=== PATIENT | male | born 1945 | race Caucasian/White ===

== ENCOUNTER 2017-02-25 12:43 | Inpatient (IN) | payer MEDICARE ==
[~2017-02-25] VITALS: Ht 182.9 cm; Wt 112.2 kg
[2017-02-25 12:46] VITALS: BP 114/78; PULSE 167; RESP 28; TEMP 98.7; O2SAT 91
--- NOTE | 2017-02-25 12:47 | PD ---
Physical Exam Date Seen by Provider: Feb 25, 2017 Time Seen by Provider: 12:45 Narrative 71 yo male here for evaluation of right sided pain. Going on for today. Pain to the right rib cage. Started on thursday. Not better. No falls or injuries. Pain is 8/10. No history of tachycardia. Takes no blood thinners. Vitals show elevated HR and low O2 in triage. Awaiting bed placement. [facility] Medical Record Reviewed: Yes Supervised Visit with TIFFANY: Demarcus Lee Feb 25, 2017 12:47
--- NOTE | 2017-02-25 12:57 | PD ---
HPI . Right sided chest pain and back pain Chief Complaint: Pain: Acute or Chronic Time Seen by Provider: 12:57 Travel History International Travel<30 days: No Contact w/Intl Traveler<30days: No Traveled to known affect area: No History of Present Illness HPI 71-year-old male with no known past medical history other than chronic back pain here with complaints of 5 days worth of right sided chest pain that is radiating to his back. He tells me that he is been coughing intermittently for the past several days and had a temperature of 101. He has history of chronic back pain and has been taking some type of [id number] muscle relaxer named Valerin, along with ibuprofen for the past several days. His pain was so significant that he tried using his TENS unit for relief yesterday. He denies any nausea, vomiting, or diaphoresis. PFSH Past Medical History Medical History: Denies Significant Hx Social History Alcohol Use: No Tobacco Use: No Substance Use: No Allergies-Medications (Allergen,Severity, Reaction): Coded Allergies: No Known Allergies (Unverified , 02/25/17) Reported Meds & Prescriptions Reported Meds & Active Scripts Active Reported [valerin] 1 Tab PO DAILY Ibuprofen 200 Mg Cap 200 Mg PO Q6H PRN Review of Systems General / Constitutional: No: Fever Eyes: No: Visual changes HENT: No: Headaches Cardiovascular: Positive: Chest Pain or Discomfort Respiratory: Positive: Cough, No: Shortness of Breath Gastrointestinal: No: Abdominal Pain Genitourinary: No: Dysuria Musculoskeletal: Positive: Pain (right side back pain ) Skin: No Rash Neurologic: No: Weakness Psychiatric: No: Depression Endocrine: No: Polydipsia Hematologic/Lymphatic: No: Easy Bruising Physical Exam Narrative GENERAL: AAO x 3, no acute distress, Well-nourished, well-developed patient. SKIN: Warm and dry. No visible rashes or bruising. HEAD: Normocephalic and atraumatic. EYES: No scleral icterus. No injection or drainage. EOM intact, PERRLA ENT: No nasal drainage noted. Mucous membranes pink. Airway patent. NECK: Supple, trachea midline. No JVD. CARDIOVASCULAR: tachycardic on examination, RESPIRATORY: Breath sounds diminished bilaterally R>L, ? consolidation; no rhonchi or wheezing appreciated GASTROINTESTINAL: Abdomen soft, non-tender, nondistended. no rebound or guarding EXTREMITIES: No cyanosis or edema. BACK: tenderness to the entire right side paraspinal musculature from mid t- spine down, + CVA Tenderness right side NEURO: CN II-12 intact, trades helper strength normal b/l, UE and LE 5/5, no focal deficits PSYCH: AAO x 3, normal affect. Data Data Last Documented VS Vital Signs Date Time Temp Pulse Resp B/P Pulse Ox O2 Delivery O2 Flow Rate FiO2 02/25/17 14:50 104 17 139/82 95 Room Air 02/25/17 13:00 2 02/25/17 12:46 98.7 Orders Electrocardiogram (02/25/17 12:57) B-Type Natriuretic Peptide (02/25/17 12:57) Ckmb (Isoenzyme) Profile (02/25/17 12:57) Complete Blood Count With Diff (02/25/17 12:57) Magnesium (Mg) (02/25/17 12:57) Prothrombin Time / Inr (Pt) (02/25/17 12:57) Act Partial Throm Time (Ptt) (02/25/17 12:57) Troponin I (02/25/17 12:57) Chest, Single Ap (02/25/17 12:57) Ecg Monitoring (02/25/17 12:57) Bilateral Bp Monitoring (02/25/17 12:57) Iv Access Insert/Monitor (02/25/17 12:57) Oximetry (02/25/17 12:57) Oxygen Administration (02/25/17 12:57) Ct Pulmonary Angiogram (02/25/17 12:57) Comprehensive Metabolic Panel (02/25/17 12:57) Lipase (02/25/17 12:57) Lactic Acid Sepsis Protocol (02/25/17 13:05) Urinalysis - C+S If Indicated (02/25/17 13:05) Blood Culture (02/25/17 13:05) CKMB (02/25/17 14:25) CKMB% (02/25/17 14:25) Iohexol 350 Inj (Omnipaque 350 Inj) (02/25/17 15:40) Physician Name Changes (02/25/17 16:51) Labs Laboratory Tests Test 02/25/17 02/25/17 02/25/17 13:15 14:25 14:35 Prothrombin Time 11.4 SEC Prothromb Time International 1.0 RATIO Ratio Activated Partial 31.5 SEC Thromboplast Time Lactic Acid Level 2.9 mmol/L B-Type Natriuretic Peptide 158 PG/ML White Blood Count 10.6 TH/MM3 Red Blood Count 4.29 MIL/MM3 Hemoglobin 14.4 GM/DL Hematocrit 41.6 % Mean Corpuscular Volume 97.0 FL Mean Corpuscular Hemoglobin 33.5 PG Mean Corpuscular Hemoglobin 34.6 % Concent Red Cell Distribution Width 13.2 % Platelet Count 142 TH/MM3 Mean Platelet Volume 8.1 FL Neutrophils (%) (Auto) 81.1 % Lymphocytes (%) (Auto) 7.0 % Monocytes (%) (Auto) 11.9 % Eosinophils (%) (Auto) 0.0 % Basophils (%) (Auto) 0.0 % Neutrophils # (Auto) 8.6 TH/MM3 Lymphocytes # (Auto) 0.7 TH/MM3 Monocytes # (Auto) 1.3 TH/MM3 Eosinophils # (Auto) 0.0 TH/MM3 Basophils # (Auto) 0.0 TH/MM3 CBC Comment DIFF FINAL Differential Comment Sodium Level 138 MEQ/L Potassium Level 3.7 MEQ/L Chloride Level 104 MEQ/L Carbon Dioxide Level 24.3 MEQ/L Anion Gap 10 MEQ/L Blood Urea Nitrogen 36 MG/DL Creatinine 1.12 MG/DL Estimat Glomerular Filtration 65 ML/MIN Rate Random Glucose 140 MG/DL Calcium Level 8.0 MG/DL Magnesium Level 2.9 MG/DL Total Bilirubin 1.3 MG/DL Aspartate Amino Transf 65 U/L (AST/SGOT) Alanine Aminotransferase 44 U/L (ALT/SGPT) Alkaline Phosphatase 54 U/L Total Creatine Kinase 434 U/L Creatine Kinase MB 2.3 NG/ML Creatine Kinase MB % 0.5 % Troponin I 0.06 NG/ML Total Protein 7.4 GM/DL Albumin 2.2 GM/DL Lipase 47 U/L Urine Color DARK-YELLOW Urine Turbidity CLEAR Urine pH 6.0 Urine Specific [place] 1.031 Urine Protein 100 mg/dL Urine Glucose (UA) NEG mg/dL Urine Ketones NEG mg/dL Urine Occult Blood SMALL Urine Nitrite NEG Urine Bilirubin NEG Urine Urobilinogen 2.0 MG/DL Urine Leukocyte Esterase NEG Urine RBC 4 /hpf Urine WBC 4 /hpf Urine Squamous Epithelial 1 /hpf Cells Urine Amorphous Sediment RARE Urine Mucus MOD /lpf Microscopic Urinalysis Comment CATH-CULT NOT IND MDM Medical Decision Making Medical Screen Exam Complete: Yes Emergency Medical Condition: Yes Medical Record Reviewed: Yes Differential Diagnosis angina, pneumonia, pulmonary emboli, cholelithiasis, nephrolithiasis Narrative Course 71-year-old male with right sided chest and back pain for the past 5 days. Patient does have some tenderness to most of the entire right side of his paraspinal musculature along with some CVA tenderness on the right. His breath sounds are diminished b/l, however, R>L. He is slightly tachycardic on examination. EKG has been reviewed by Dr. Scherer. IV access obtained and patient placed on continuous cardiac and pulse oximetry monitoring. Labs, imaging including chest x-ray and CT pulmonary angiogram ordered. Last Impressions Chest X-Ray 02/25/17 1257 Signed Impressions: Service Date/Time: Saturday, February 25, 2017 13:29 - CONCLUSION: Dense opacification the right lung base characteristic of a pleural effusion with underlying lung consolidation and/or mass. Followup to clearing recommended. Chano Lopez MD Laboratory Tests Test 02/25/17 02/25/17 13:15 14:25 Prothrombin Time 11.4 SEC Prothromb Time International 1.0 RATIO Ratio Activated Partial 31.5 SEC Thromboplast Time Lactic Acid Level 2.9 mmol/L B-Type Natriuretic Peptide 158 PG/ML White Blood Count 10.6 TH/MM3 Red Blood Count 4.29 MIL/MM3 Hemoglobin 14.4 GM/DL Hematocrit 41.6 % Mean Corpuscular Volume 97.0 FL Mean Corpuscular Hemoglobin 33.5 PG Mean Corpuscular Hemoglobin 34.6 % Concent Red Cell Distribution Width 13.2 % Platelet Count 142 TH/MM3 Mean Platelet Volume 8.1 FL Neutrophils (%) (Auto) 81.1 % Lymphocytes (%) (Auto) 7.0 % Monocytes (%) (Auto) 11.9 % Eosinophils (%) (Auto) 0.0 % Basophils (%) (Auto) 0.0 % Neutrophils # (Auto) 8.6 TH/MM3 Lymphocytes # (Auto) 0.7 TH/MM3 Monocytes # (Auto) 1.3 TH/MM3 Eosinophils # (Auto) 0.0 TH/MM3 Basophils # (Auto) 0.0 TH/MM3 CBC Comment DIFF FINAL Differential Comment Sodium Level 138 MEQ/L Potassium Level 3.7 MEQ/L Chloride Level 104 MEQ/L Carbon Dioxide Level 24.3 MEQ/L Anion Gap 10 MEQ/L Blood Urea Nitrogen 36 MG/DL Creatinine 1.12 MG/DL Estimat Glomerular Filtration 65 ML/MIN Rate Random Glucose 140 MG/DL Calcium Level 8.0 MG/DL Magnesium Level 2.9 MG/DL Total Bilirubin 1.3 MG/DL Aspartate Amino Transf 65 U/L (AST/SGOT) Alanine Aminotransferase 44 U/L (ALT/SGPT) Alkaline Phosphatase 54 U/L Total Creatine Kinase 434 U/L Troponin I 0.06 NG/ML Total Protein 7.4 GM/DL Albumin 2.2 GM/DL Lipase 47 U/L CXR shows large pleural effusion ? underlying mass. I have discussed the case with my attending Dr. Scherer, who recommends admission and tapping the pleural effusion. All of patients labs have been reviewed by my attending and they are all minimally elevated and nonspecific. At this time the pleural effusion is the issue at hand. We will hold off on antibiotics. Patient is afebrile. No WBC. Has not had tachycardia since coming into the room in the ED. 1711: case discussed with Dr. Rodriguez. Patient will be admitted and care will be resumed by [facility] Hospitalist. I have discussed all of the findings with the patient and his roommate at bedside. He has accepted the recommendations for admission. Diagnosis Primary Impression: Pleural effusion Additional Impression: Hypoxemia Admitting Information Admitting Physician Requests: Admit Condition: Stable Aimee Jeong Feb 25, 2017 12:57
[2017-02-25] MEDS ORDERED: IBUP200C PO (13:40)
[2017-02-25 14:03] LABS: APTT (PATIENT) 31.5 SEC (24.3-30.1); PROTHROMBIN TIME - PATIENT 11.4 SEC (9.8-11.6)
[2017-02-25] MEDS ORDERED: [UNRECOGNIZED DRUG - OTHER] PO (14:06)
--- NOTE | 2017-02-25 14:27 | RADRPT ---
EXAM DATE/TIME: 02/25/2017 13:29 [facility] COMPARISON: No previous studies available for comparison. INDICATIONS : Right side chest pain since last . MEDICAL HISTORY : None. SURGICAL HISTORY : None. ENCOUNTER: Initial ACUITY: 1 day PAIN SCORE: 7/10 LOCATION: Right chest FINDINGS: A single view of the chest demonstrates dense opacity across the right lung base. The right upper denisse g field and left lung are clear. Heart size appears to be within normal limits however right heart border is obscured. Osseous structures appear intact. CONCLUSION: Dense opacification the right lung base characteristic of a pleural effusion with underlying lung con solidation and/or mass. Followup to clearing recommended. Chano Lopez MD on February 25, 2017 at 14:23 Board Certified Radiologist. This report was verified electronically.
[2017-02-25 14:50] VITALS: BP 139/82; PULSE 104; RESP 17; O2SAT 95
[2017-02-25 14:55] LABS: AUTOMATED NEUTROPHIL # 8.6 TH/MM3 (1.8-7.7); HEMATOCRIT 41.6 % (39.0-51.0); HEMO FLAGS DIFF FINAL; LYMPHOCYTE # 0.7 TH/MM3 (1.0-4.8); MEAN CORPUSCULAR HEMOGLOBIN 33.5 PG (27.0-34.0); MEAN CORPUSCULAR HGB CONC 34.6 % (32.0-36.0); MONO % 11.9 % (0.0-8.0); NEUT % 81.1 % (16.0-70.0); PLATELET COUNT 142 TH/MM3 (150-450); RED BLOOD COUNT 4.29 MIL/MM3 (4.50-5.90); RED CELL DISTRIBUTION WIDTH 13.2 % (11.6-17.2); WHITE BLOOD COUNT 10.6 TH/MM3 (4.0-11.0)
[2017-02-25 15:08] LABS: ALT (GPT) 44 U/L (12-78); ANION GAP 10 MEQ/L (5-15); AST (GOT) 65 U/L (15-37); BICARBONATE 24.3 MEQ/L (21.0-32.0); BLOOD UREA NITROGEN 36 MG/DL (7-18); CHLORIDE 104 MEQ/L (98-107); GLOMERULAR FILTRATION RATE 65 ML/MIN (>89); MAGNESIUM 2.9 MG/DL (1.5-2.5); POTASSIUM 3.7 MEQ/L (3.5-5.1); SODIUM (NA) 138 MEQ/L (136-145)
[2017-02-25 15:12] LABS: ALKALINE PHOSPHATASE 54 U/L (45-117); CREATINE KINASE 434 U/L (39-308); TOTAL BILIRUBIN ADULT 1.3 MG/DL (0.2-1.0)
[2017-02-25 15:25] LABS: BLOOD, URINE SMALL (NEG); GLUCOSE,URINE NEG (NEG); KETONE, URINE NEG (NEG); MUCUS URINE MOD /lpf (OCC); NITRITE,URINE NEG (NEG); SQUAMOUS EPITHELIAL CELL URINE 1 /hpf (0-5); URINE COLOR DARK-YELLOW (YELLW/STRAW)
[2017-02-25 15:25] LABS: CKMB 2.3 NG/ML (0.5-3.6)
[2017-02-25 15:28] LABS: COMMENT (UR) CATH-CULT NOT IND; CULTURE IF INDICATED CATH CULTURE NOT IND
[2017-02-25] MEDS ORDERED: IOHEXOL 350 MG/ML 10 ML VIAL (for RAD DIAG) IV ONE (15:40)
[2017-02-25 15:43] LABS: LACTIC ACID GHOST NOT REPORTABLE
--- NOTE | 2017-02-25 15:53 | RADRPT ---
EXAM DATE/TIME: 02/25/2017 15:24 [facility] COMPARISON: No previous studies available for comparison. INDICATIONS : Short of breath for one week. IV CONTRAST: 75 cc Omnipaque 350 (iohexol) IV RADIATION DOSE: 22.8 CTDIvol (mGy) MEDICAL HISTORY : None SURGICAL HISTORY : None. ENCOUNTER: Initial ACUITY: 1 week PAIN SCALE: 8/10 LOCATION: Right lower chest. TECHNIQUE: Volumetric scanning of the chest was performed using a pulmonary embolism protocol MIP images were re constructed. Using automated exposure control and adjustment of the mA and/or kV according to patien t size, radiation dose was kept as low as reasonably achievable to obtain optimal diagnostic quality images. DICOM format image data is available electronically for review and comparison. Follow-up recommendations for incidentally detected pulmonary nodules are based at a minimum on nodul e size and patient risk factors according to Fleischner Society Guidelines. FINDINGS: PULMONARY ARTERIES: No filling defects are seen in the pulmonary arteries through the segmental level. LUNGS: Subtotal lobar consolidation is identified of the right middle and lower lobes. PLEURAE: Small to moderate right pleural effusion is noted adjacent to the consolidated lung within the right base. MEDIASTINUM: There is good visualization of the great vessels of the middle mediastinum. No evidence of mediastin al or hilar adenopathy/mass. MUSCULOSKELETAL: Within normal limits for patient age. MISCELLANEOUS: The visualized upper abdominal organs demonstrate no acute abnormality. CONCLUSION: 1. No evidence of PE. 2. Consolidated right middle and right lower lobes 3. Small to moderate right parapneumonic effusion Chano Lopez MD on February 25, 2017 at 15:46 Board Certified Radiologist. This report was verified electronically.
[2017-02-25 17:30] VITALS: BP 135/70; PULSE 89; RESP 17; O2SAT 94
[2017-02-25] MEDS ORDERED: ACETAMINOPHEN 325 MG TAB PO PRN (17:30)
[2017-02-25] MEDS ORDERED: ONDANSETRON HCL 4 MG/2 ML VIAL IVP PRN (17:30)
[2017-02-25] MEDS ORDERED: RESP: ALBUTEROL 2.5 MG/IPRATROPIUM 0.5 MG NEB (PRN) NEB (17:30)
[2017-02-25] MEDS ORDERED: MAGNESIUM HYDROXIDE SUSP 30 ML CUP PO PRN (17:30)
[2017-02-25] MEDS ORDERED: NALOXONE HCL 0.4 MG/ML AMP IV PRN (17:30)
[2017-02-25] MEDS ORDERED: SODIUM CHLORIDE 0.9% FLUSH 10 ML FLUSH IV FLUSH PRN (17:30)
--- NOTE | 2017-02-25 17:40 | HHI.HP ---
[facility] Service [facility] Primary Care Physician Katherine Celaya MD Admission Diagnosis pleural effusion/possible pneumonia Diagnoses: Chief Complaint: right post back pain Travel History International Travel<30 Days: No Contact w/Intl Traveler <30 Da: No Traveled to Known Affected Are: No History of Present Illness This is a pleasant 71-year-old white male with no significant medical history other than asthma as a child. Patient presented to the emergency room with right posterior back pain that has been worsening over the last 7 days. Indicates that the pain is located to the right posterior rib cage, there is no radiation, it is stabbing. It subsides on its own, he has been taking Valerium , which is a natural supplement that is like a muscle relaxant. His roommate has noted increased shortness of breath, he did have a fever a few days ago that was 101.2. There is no leg swelling, no actual chest discomfort. He has a dry cough, small amount of sputum, worst in the morning and after taking naps. He has also been applying Vicks vapor rub, without any relief. He denies any recent injury, no falls. Patient indicates he has not seen a primary care physician in more than 2 years. He had a slip and fall 7 years ago and has chronic left-sided back pain for which he takes natural supplements. Patient presented to the emergency room, vital signs were completed. Temperature was 98.7, pulse rate was 104, respiratory rate 28, blood pressure 114/78. Sats were 91% on room air. CBC was remarkable for thrombocytopenia, platelet 142. BMP remarkable for random glucose of 140, lactic acid 2.9. Total bilirubin 1.3. AST 65. Total creatinine kinase 434. The natruretic peptide 158. Troponin 0.06. Imaging studies were completed. CTA was negative for PE but it did show consolidated right middle and right lower lobes, small to moderate right parapneumonic effusion. Chest x-ray showed dense opacification of the right lung base characteristic of a pleural effusion with underlying lobe consolidation and or mass. Patient was put on oxygen. Cultures were obtained and empiric antibiotics were started. At this time, he's resting comfortably. Endorses prior history of smoking, quit in the 1980s, he did smoke 15 years half a pack a day. Patient is admitted for further evaluation and treatment. Review of Systems Constitutional: COMPLAINS OF: Fever, Chills, DENIES: Diaphoretic episodes, Fatigue, Weight gain, Weight loss, Dizziness, Change in appetite, Night Sweats Endocrine: DENIES: Heat/cold intolerance, Polydipsia, Polyuria, Polyphagia Eyes: DENIES: Blurred vision, Diplopia, Eye inflammation, Eye pain, Vision loss , Photosensitivity, Double Vision Ears, nose, mouth, throat: DENIES: Tinnitus, Hearing loss, Vertigo, Nasal discharge, Oral lesions, Throat pain, Hoarseness, Ear Pain, Running Nose, Epistaxis, Sinus Pain, Toothache, Odynophagia Respiratory: COMPLAINS OF: Cough, Sputum production, Shortness of breath, DENIES: Apneas, Snoring, Wheezing, Hemoptysis Cardiovascular: COMPLAINS OF: Chest pain (right posterior back pain), DENIES: Palpitations, Syncope, Dyspnea on Exertion, PND, Lower Extremity Edema, Orthopnea, Claudication Gastrointestinal: COMPLAINS OF: Constipation (did have constipation for 2-3 days, took Epsom salts and is now resolved.), DENIES: Abdominal pain, Black stools, Bloody stools, Diarrhea, Nausea, Vomiting, Difficulty Swallowing, Anorexia Genitourinary: DENIES: Sexual dysfunction, Urinary frequency, Urinary incontinence, Urgency, Hematuria, Dysuria, Nocturia, Penile Discharge, Testicular Pain, Testicular Swelling Musculoskeletal: DENIES: Joint pain, Muscle aches, Stiffness, Joint Swelling, Back pain, Neck pain Integumentary: DENIES: Abnormal pigmentation, Nail changes, Pruritus, Rash Hematologic/lymphatic: DENIES: Bruising, Lymphadenopathy Past Family Social History Past Medical History Asthma as a child Slip and fall 7 years ago, has chronic left-sided pain for which she takes natural supplement Past Surgical History Dental surgery Reported Medications Reported Meds & Active Scripts Active Reported [valerin] 1 Tab PO DAILY Ibuprofen 200 Mg Cap 200 Mg PO Q6H PRN Allergies: Coded Allergies: No Known Allergies (Unverified , 02/25/17) Active Ordered Medications Inpatient Medications Acetaminophen (Tylenol) 650 mg Q4H PRN PO TEMP > 100.4; Start 02/25/17 at 17:30 ; Status UNV Albuterol/ Ipratropium (Duoneb Neb) 1 ampule Q4HR NEB PRN NEB SOB/WHEEZING; Start 02/25/17 at 17:30; Status UNV Azithromycin/ Sodium Chloride (Zithromax Inj/ NS 250 ml Inj) 250 ml @ 250 mls/ hr Q24H IV ; Start 02/25/17 at 17:30; Status UNV Enoxaparin Sodium (Lovenox Inj) 40 mg Q24H SQ ; Start 02/25/17 at 17:30; Status UNV Magnesium Hydroxide 30 ml 30 ml Q12H PRN PO MILD - MODERATE CONSTIPATION; Start 02/25/17 at 17:30; Status UNV Naloxone HCl (Narcan Inj) 0.4 mg UNSCH PRN IV SEE LABEL COMMENTS; Start at 17:30; Status UNV Ondansetron HCl (Zofran Inj) 4 mg Q6H PRN IVP NAUSEA OR VOMITING; Start at 17:30; Status UNV Piperacillin Sod/ Tazobactam Sod 50 ml @ 100 mls/hr Q6H IV ; Start 02/25/17 at 17:30; Status UNV Senna/Docusate Sodium ([place]landa-Colace) 1 tab BID PO ; Start 02/25/17 at 21:00; Status UNV Sodium Chloride (NS 1000 ml Inj) 1,000 ml @ 100 mls/hr Q10H IV ; Start 02/25/17 at 17:18; Status UNV Sodium Chloride (NS Flush) 2 ml BID IV FLUSH ; Start 02/25/17 at 21:00; Status UNV Family History Reviewed, noncontributory Social History Patient is , lives with a roommate. Has grown children. Very rare alcohol, no substance abuse. Quit smoking in the 1980s, he smoked half a pack a day for 15 years. Did have asbestos exposure when he worked at the [employer] Physical Exam Vital Signs Vital Signs Date Time Temp Pulse Resp B/P Pulse Ox O2 Delivery O2 Flow Rate FiO2 02/25/17 14:50 104 17 139/82 95 Room Air 02/25/17 13:00 93 Nasal Cannula 2 02/25/17 12:59 18 02/25/17 12:46 98.7 167 28 114/78 91 Room Air Physical Exam GENERAL: This is a well-nourished, well-developed patient, in no apparent distress. SKIN: No rashes, ecchymoses or lesions. Cool and dry. HEAD: Atraumatic. Normocephalic. No temporal or scalp tenderness. EYES: Pupils equal round and reactive. Extraocular motions intact. No scleral icterus. No injection or drainage. ENT: Nose without bleeding, purulent drainage or septal hematoma. Throat without erythema, tonsillar hypertrophy or exudate. Uvula midline. Airway patent. NECK: Trachea midline. No JVD or lymphadenopathy. Supple, nontender, no meningeal signs. CARDIOVASCULAR: Regular rate and rhythm without murmurs, gallops, or rubs. RESPIRATORY: Breath sounds are diminished to the right lower base. Right CVA tenderness. GASTROINTESTINAL: Abdomen soft, non-tender, nondistended. No hepato-splenomegaly , or palpable masses. No guarding. MUSCULOSKELETAL: Extremities without clubbing, cyanosis, or edema. No joint tenderness, effusion, or edema noted. No calf tenderness. Negative Homans sign bilaterally. NEUROLOGICAL: Awake, alert oriented 3. No focal deficits Laboratory Laboratory Tests Test 02/25/17 02/25/17 02/25/17 13:15 14:25 14:35 Prothrombin Time 11.4 Prothromb Time International 1.0 Ratio Activated Partial 31.5 Thromboplast Time Lactic Acid Level 2.9 B-Type Natriuretic Peptide 158 White Blood Count 10.6 Red Blood Count 4.29 Hemoglobin 14.4 Hematocrit 41.6 Mean Corpuscular Volume 97.0 Mean Corpuscular Hemoglobin 33.5 Mean Corpuscular Hemoglobin 34.6 Concent Red Cell Distribution Width 13.2 Platelet Count 142 Mean Platelet Volume 8.1 Neutrophils (%) (Auto) 81.1 Lymphocytes (%) (Auto) 7.0 Monocytes (%) (Auto) 11.9 Eosinophils (%) (Auto) 0.0 Basophils (%) (Auto) 0.0 Neutrophils # (Auto) 8.6 Lymphocytes # (Auto) 0.7 Monocytes # (Auto) 1.3 Eosinophils # (Auto) 0.0 Basophils # (Auto) 0.0 CBC Comment DIFF FINAL Differential Comment Sodium Level 138 Potassium Level 3.7 Chloride Level 104 Carbon Dioxide Level 24.3 Anion Gap 10 Blood Urea Nitrogen 36 Creatinine 1.12 Estimat Glomerular Filtration 65 Rate Random Glucose 140 Calcium Level 8.0 Magnesium Level 2.9 Total Bilirubin 1.3 Aspartate Amino Transf 65 (AST/SGOT) Alanine Aminotransferase 44 (ALT/SGPT) Alkaline Phosphatase 54 Total Creatine Kinase 434 Creatine Kinase MB 2.3 Creatine Kinase MB % 0.5 Troponin I 0.06 Total Protein 7.4 Albumin 2.2 Lipase 47 Urine Color DARK-YELLOW Urine Turbidity CLEAR Urine pH 6.0 Urine Specific [place] 1.031 Urine Protein 100 Urine Glucose (UA) NEG Urine Ketones NEG Urine Occult Blood SMALL Urine Nitrite NEG Urine Bilirubin NEG Urine Urobilinogen 2.0 Urine Leukocyte Esterase NEG Urine RBC 4 Urine WBC 4 Urine Squamous Epithelial 1 Cells Urine Amorphous Sediment RARE Urine Mucus MOD Microscopic Urinalysis Comment CATH-CULT NOT IND Date/Time Procedure Status Source Growth 02/25/17 13:30 Aerobic Blood Culture Received Blood Peripheral Pending 02/25/17 13:30 Anaerobic Blood Culture Received Blood Peripheral Pending Result Diagram: 02/25/17 1425 02/25/17 1425 Imaging Last Impressions Chest X-Ray 02/25/17 1257 Signed Impressions: Service Date/Time: Saturday, February 25, 2017 13:29 - CONCLUSION: Dense opacification the right lung base characteristic of a pleural effusion with underlying lung consolidation and/or mass. Followup to clearing recommended. Chano Lopez MD CT Angiography 02/25/17 1257 Signed Impressions: Service Date/Time: Saturday, February 25, 2017 15:24 - CONCLUSION: 1. No evidence of PE. 2. Consolidated right middle and right lower lobes 3. Small to moderate right parapneumonic effusion Chano Lopez MD Assessment and Plan Problem List: (1) Hypoxemia (2) Pleural effusion (3) Pneumonia (4) Lactic acidosis (5) Blood glucose elevated (6) Elevated troponin Assessment and Plan Admit to Dr. Peña 71-year-old white male presented to the emergency room with complaint of right posterior back pain associated with shortness of breath, fever, cough. Consolidated right middle and right lower lobe, small to moderate right parapneumonic effusion -Continue with antibiotics, Zosyn and Zithromax Follow blood cultures Consult pulmonology -Continue with IV fluids Hypoxemia History of asthma as a child -DuoNeb's when necessary for wheezing -Continue with supplemental oxygen Elevated troponin -Continue with serial cardiac enzymes Elevated blood glucose Hemoglobin A1c in the morning Lovenox for DVT prophylaxis Repeat labs in the morning Plan of care has been discussed with the patient, attending and registered nurse. Further management of the patient will be dependent on the hospital course This patient was seen by myself and Dr. Peña, this H&P is written on his behalf Physician Certification 2 Midnight Certification Type: Admission for Inpatient Services Order for Inpatient Services The services are ordered in accordance with Medicare regulations or non- Medicare payer requirements, as applicable. In the case of services not specified as inpatient-only, they are appropriately provided as inpatient services in accordance with the 2-midnight benchmark. Estimated LOS (days): 2 2 days is the estimated time the patient will need to remain in the hospital, assuming treatment plan goals are met and no additional complications. Post-Hospital Plan: Not yet determined Problem Qualifiers (1) Pneumonia: Debby Wedlon [facility] Feb 25, 2017 17:40
[2017-02-25] MEDS ORDERED: SODIUM CHLOR 0.9% 1000 ML INJ 1,000 ML IV SCH (18:00)
[2017-02-25] MEDS ORDERED: DILTIAZEM HCL 25 MG/5 ML VIAL ONE (19:24)
--- NOTE | 2017-02-25 19:30 | MB ---
cc: GEORGE WATSON DATE OF CONSULTATION 02/25/[address] Rodriguez REASON FOR CONSULTATION Evaluate for pneumonia and shortness of breath. HISTORY OF THE PRESENT ILLNESS Mr. Pina is a pleasant 71-year-old male with history of arthritis pain, possible high blood pressure. He has not seen a physician for a long period of time. He virk not take any prescription medication at home. The patient came to the hospital with complaint of right-sided chest pain, fever up to 101.4 degrees, cough, small amount of sputum production, decreased appetite for the last 4 to 5 days. He denies any chills. He did not have any nausea or vomiting. At one-time he did feel a little sick and was not able to eat much. His chest pain is worse when he takes a deep breath. No headache or dizziness. No skin rash. With these symptoms he came to the hospital. He had a workup done. IMAGING He had a CTA of the chest done that does not show any pulmonary embolism. He has a consultation in the right middle lobe and right lower lobe with air bronchogram in it and he has a small to moderate right pleural effusion. LABORATORY DATA His WBC count is 10.6, hemoglobin 14.4, hematocrit 41.6, MCV 97, platelet count 142. Sodium 138, potassium 3.7, chloride 104, CO2 24, BUN 36, creatinine 1.12. INR is 1.0. His blood culture so far is negative. PAST MEDICAL HISTORY Significant for: 1. History of arthritis pain. 2. History of teeth removed. MEDICATIONS At home he was not taking any medication other than [id number] muscle relaxant. Currently he is takin. Zofran p.m. 2. Lovenox 40 mg a day. 3. Zithromax 500 mg a day. 4. Zosyn q.6 h. 5. Albuterol/Atrovent nebulizer treatment. ALLERGIES NO KNOWN DRUG ALLERGIES. SOCIAL HISTORY He has history of smoking for 10-15 years which he quit about 40 years ago. He drinks half a pint of liquor a day. No drug abuse. 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 He also installed the system at [facility]. FAMILY HISTORY He was twice but now he lives with a roommate. He has three grown children. REVIEW OF SYSTEMS Normally he is up, around and active. Weight is stable. No DVT or pulmonary embolism. No seizure, stroke or epilepsy. No bleeding from any site. PHYSICAL EXAMINATION GENERAL: Physical examination shows well built, well-nourished male not in acute distress. VITAL SIGNS: Blood pressure 135/70, heart rate 80, respirations 17, temperature 98.7. HEENT: Examination pupils are equal, round and reactive to light. Oral mucosa, nasal mucosa normal. NECK: Supple. JVD not raised. CHEST: Air entry equal bilaterally. He has rales on the right side and has bronchial breath sound on the right side. CARDIOVASCULAR: S1-S2 normal. ABDOMEN: Benign. EXTREMITIES: No edema. IMPRESSION 1. Right middle lobe, right lower lobe pneumonia likely community-acquired pneumonia. 2. Small pleural effusion likely parapneumonic. 3. Mild hypoxia. 4. Leukocytosis. PLAN I discussed with the patient we will check his sputum culture, urine legionella and pneumococcal antigen. Continue antibiotics Zosyn and Zithromax. Monitor his pleural effusion. If he does not respond to therapy or pleural effusion increases then he will need thoracentesis. Further treatment will depend on the course in the hospital. Thank you Dr. Rodriguez for this consultation. MD ZACKARY Dailey/MARIE /6:11 PM /7:10 PM
[2017-02-25 20:04] VITALS: BP 120/69
[2017-02-25 20:46] VITALS: O2SAT 92
[2017-02-25] MEDS: DOCUSATE SODIUM 50 MG/SENNA 8.6 MG TAB PO SCH (21:00)
[2017-02-25] MEDS: SODIUM CHLORIDE 0.9% FLUSH 10 ML FLUSH IV FLUSH SCH (21:00)
[2017-02-25 21:23] VITALS: BP 143/73; PULSE 56; RESP 20; TEMP 100.3; O2SAT 91
[2017-02-26] VITALS (7 sets, daily range): BP systolic 115–156; BP diastolic 60–81; PULSE 68–122; RESP 18–20; TEMP 98.5–100.2; O2SAT 91–100
[2017-02-26] MEDS: FUROSEMIDE 20 MG/2 ML VIAL IV PUSH SCH ×3 (01:01→17:08)
[2017-02-26] MEDS: AZITHROMYCIN INJ 500 MG in SODIUM CHLOR 0.9% 250 ML INJ 250 ML IV SCH ×2 (01:02→22:28)
[2017-02-26] MEDS: ENOXAPARIN SODIUM 40 MG/0.4 ML SYRINGE SQ SCH ×2 (01:02→22:29)
[2017-02-26] MEDS: PIPERACIL-TAZO 3.375 GM PREMIX 50 ML IV SCH ×5 (01:03→22:29)
[2017-02-26] MEDS: SODIUM CHLORIDE 0.9% FLUSH 10 ML FLUSH IV FLUSH SCH ×2 (08:47→21:00)
[2017-02-26] MEDS: DOCUSATE SODIUM 50 MG/SENNA 8.6 MG TAB PO SCH ×3 (08:47→22:29)
--- NOTE | 2017-02-26 08:56 | PD.PN.STU ---
Subjective Remarks Patient reports that he has feeling "pretty good" today. He has seen some symptom improvement since yesterday. He notes that the pain over the right side of his chest has subsided and his shortness of breath has improved. He says that he is still coughing up a yellow colored phlegm. He notes that he has felt "warm" since arrival and has experienced one episode of chills overnight. He denies pain with deep breathing, headache, and lightheadedness. Objective Vitals Vital Signs Date Time Temp Pulse Resp B/P Pulse Ox O2 Delivery O2 Flow Rate FiO2 02/26/17 08:00 80 02/26/17 04:00 100.2 81 20 131/72 91 02/26/17 00:00 99.8 68 20 139/64 94 02/25/17 21:23 100.3 56 20 143/73 91 02/25/17 20:46 92 Nasal Cannula 4.00 02/25/17 20:04 95 20 120/69 95 Nasal Cannula 3 02/25/17 17:30 89 17 135/70 94 Room Air 02/25/17 14:50 104 17 139/82 95 Room Air 02/25/17 13:00 93 Nasal Cannula 2 02/25/17 12:59 18 02/25/17 12:46 98.7 167 28 114/78 91 Room Air I/O 02/25/17 02/25/17 02/25/17 02/26/17 02/26/17 02/26/17 07:00 15:00 23:00 07:00 15:00 23:00 Output Total 475 ml Balance -475 ml Output Urine Total 475 ml Result Diagram: 02/25/17 1425 02/25/17 1425 Objective Remarks Cardiovascular: RRR. S1 S2 normal with no murmurs or rubs appreciated. Radial pulses 2+. Respiratory: No observed use of accessory respiratory muscles. Decreased breath sounds over right lung base. No crackles or wheezes appreciated. A/P Assessment and Plan 1. Pneumonia: continue to treat with antibiotics Zosyn and Zithromax. 2. Right sided back pain: treat with analgesia as necessary. 3. Shortness of breath/hypoxemia: utilize supplemental O2 as necessary. 4. Pleural effusion: observe and monitor for expansion. If increase in size consider thoracentesis . Addendum by Dr. Peña I personally seen and examined this patient Discussed with medical student Agree with above [place] is referred to my independent note for more details Trudy Caceres Feb 26, 2017 08:56 Ankur Peña MD Feb 26, 2017 16:03
[2017-02-26] MEDS: FUROSEMIDE 40 MG/4 ML VIAL IV PUSH SCH ×2 (09:00→18:00)
--- NOTE | 2017-02-26 10:59 | HHI.PR ---
Subjective Remarks Resting in bed Awake Mild exertional dyspnea with low volumes, weak light cough Low-grade fever 100.2 (Deysi Miranda) Objective Objective Results - Vital Signs Date Time Temp Pulse Resp B/P Pulse Ox O2 Delivery O2 Flow Rate FiO2 02/26/17 08:00 99.7 91 18 156/74 92 02/26/17 08:00 80 02/26/17 04:00 100.2 81 20 131/72 91 02/26/17 00:00 99.8 68 20 139/64 94 02/25/17 21:23 100.3 56 20 143/73 91 02/25/17 20:46 92 Nasal Cannula 4.00 02/25/17 20:04 95 20 120/69 95 Nasal Cannula 3 02/25/17 17:30 89 17 135/70 94 Room Air 02/25/17 14:50 104 17 139/82 95 Room Air 02/25/17 13:00 93 Nasal Cannula 2 02/25/17 12:59 18 02/25/17 12:46 98.7 167 28 114/78 91 Room Air I/O 02/25/17 02/25/17 02/25/17 02/26/17 02/26/17 02/26/17 06:59 14:59 22:59 06:59 14:59 22:59 Intake Total 1354 ml Output Total 475 ml Balance -475 ml 1354 ml Intake IV Total 1354 ml Output Urine Total 475 ml (Deysi Miranda) Result Diagram: 02/25/17 1425 02/25/17 1425 Other Results Last Impressions Chest X-Ray 02/25/17 1257 Signed Impressions: Service Date/Time: Saturday, February 25, 2017 13:29 - CONCLUSION: Dense opacification the right lung base characteristic of a pleural effusion with underlying lung consolidation and/or mass. Followup to clearing recommended. Chano Lopez MD CT Angiography 02/25/17 1257 Signed Impressions: Service Date/Time: Saturday, February 25, 2017 15:24 - CONCLUSION: 1. No evidence of PE. 2. Consolidated right middle and right lower lobes 3. Small to moderate right parapneumonic effusion Chano Lopez MD Medications and IVs Administered Medications Medications (Trade) Dose Ordered Sig/Roseann Route PRN Reason Start Time Stop Time Status Last Admin Dose Admin Enoxaparin Sodium 40 mg 40 mg Q24H SQ 02/25/17 20:00 02/26/17 01:02 Piperacillin Sod/ Tazobactam Sod 50 ml @ 100 mls/hr Q6H IV 02/25/17 20:00 02/26/17 08:47 Azithromycin/ Sodium Chloride (Zithromax Inj/ NS 250 ml Inj) 250 ml @ 250 mls/hr Q24H IV 02/25/17 20:00 02/26/17 01:02 Furosemide (Lasix Inj) 20 mg BID@09,18 IV PUSH 02/25/17 20:30 02/26/17 08:47 (Deysi Miranda) ROS General: Fatigue, Weakness, Other Pulmonary: Cough (10 point ROS done positives occasional cough, weak), SOB ( mild at rest) Skin: Other (obese) (Deysi Miranda) Physical Exam Physical Exam PHYSICAL EXAMINATION GENERAL: This is a obese male Resting in the bed mild tachypnea respirations noted He is awake, HEAD: Normocephalic OROPHARYNGEAL: Oropharynx dry NECK: Supple. Trachea midline without deviation. CARDIAC: Regular rhythm, regular rate, S1 and S2 are heard heart sounds distant LUNGS: Diminished to auscultation bilaterally. mild rhonchi ABDOMEN: Round, Soft, nontender, Bowel sounds are soft, active EXTREMITIES: Trace edema. Extremities warm NEUROLOGICAL: Patient mood and affect appropriate SKIN:Warm, dry (Deysi Miranda) A/P Assessment and Plan 1) Hypoxemia (2) Pleural effusion (3) Pneumonia (4) Lactic acidosis (5) Blood glucose elevated (6) Elevated troponin Vital signs reviewed, temp 100.2 Labs reviewed, acute kidney injury with dehydration, BUNs 36 encourage by mouth fluids Thrombocytopenia mild platelet count 142, monitor, mild positive troponin decreased 0.04 Lactic acid decreased after 24 hours to 1.7, no leukocytosis noted Recheck labs in the morning Consolidated right middle and right lower lobe, small to moderate right parapneumonic effusion Community-acquired, patient had been sick for approximately 5-6 days before coming to the hospital, after speaking with patient and family he seems to have fairly sedentary lifestyle due to chronic back pain and right hip pain from a old previous injury. Encourage patient to be out of bed up in chair, assisted to the bathroom this morning, will order physical therapy for evaluation and to evaluate strengthening and mobility continue duo nebs, oxygen, antibiotics, so far blood cultures are negative Consult pulmonary for expert opinion appreciate input, encourage by mouth fluids which include water and juice, hold off on Gatorade due to sodium content , IV hydration, Hypoxemia, resolved with oxygen, dual nebs, monitor O2 sat and any signs of acute shortness of breath Elevated troponin 2-D echo done, just completed report pending Cardiology consult appreciate input, currently receiving some IV diuresis Lovenox for DVT prophylaxis PPI for PUD prophylaxis Discharge planning, patient has sedentary lifestyle, encouraged to be up and mobile at home as much as possible for his quality of life. Physical therapy eval pending Discussed with nurse Discussed with patient Discussed with Dr. Peña, seen on his behalf (Deysi Miranda) Assessment and Plan seen, examined by myself, Dr Peña, today Discussed with patient, he is feeling better, breathing better, we will increase his Lasix dose Followed by pulmonary Hospital need for thoracentesis if no improvement Continue antibiotics No atrial fibrillation today Echocardiogram unremarkable, but of poor quality Discussed with mid level provider The exam, history, and the medical decision-making described in the above note were completed with the assistance of the mid-level provider. I reviewed the findings presented. I attest that I had a [id number] encounter with the patient on the same day, and personally performed and documented my assessment and findings in the medical record. (Ankur Peña MD) Deysi Miranda Feb 26, 2017 10:59 Ankur Peña MD Feb 26, 2017 19:58
[2017-02-26 11:56] LABS: AUTOMATED NEUTROPHIL # 5.8 TH/MM3 (1.8-7.7); BASOPHIL % 0.1 % (0.0-2.0); EOSINOPHIL % 0.3 % (0.0-4.0); HEMATOCRIT 41.7 % (39.0-51.0); HEMO FLAGS DIFF FINAL; LYMPH % 8.5 % (9.0-44.0); LYMPHOCYTE # 0.6 TH/MM3 (1.0-4.8); MEAN CELL VOLUME 97.2 FL (80.0-100.0); MEAN CORPUSCULAR HEMOGLOBIN 33.8 PG (27.0-34.0); MEAN CORPUSCULAR HGB CONC 34.7 % (32.0-36.0); MONO % 10.9 % (0.0-8.0); NEUT % 80.2 % (16.0-70.0); PLATELET COUNT 131 TH/MM3 (150-450); RED BLOOD COUNT 4.28 MIL/MM3 (4.50-5.90); RED CELL DISTRIBUTION WIDTH 13.4 % (11.6-17.2); WHITE BLOOD COUNT 7.2 TH/MM3 (4.0-11.0)
[2017-02-26 12:26] LABS: ALT (GPT) 46 U/L (12-78); ANION GAP 7 MEQ/L (5-15); AST (GOT) 64 U/L (15-37); CHLORIDE 104 MEQ/L (98-107); GLOMERULAR FILTRATION RATE 78 ML/MIN (>89); MAGNESIUM 2.6 MG/DL (1.5-2.5); POTASSIUM 3.2 MEQ/L (3.5-5.1); SODIUM (NA) 138 MEQ/L (136-145)
[2017-02-26 12:30] LABS: ALKALINE PHOSPHATASE 53 U/L (45-117); BLOOD UREA NITROGEN 28 MG/DL (7-18); CREATINE KINASE 385 U/L (39-308); TOTAL BILIRUBIN ADULT 1.1 MG/DL (0.2-1.0)
[2017-02-26 12:42] LABS: CKMB 3.3 NG/ML (0.5-3.6)
--- NOTE | 2017-02-26 14:35 | ECHRPT ---
Indication: Paroxysmal atrial fibrillation CONCLUSIONS Normal left ventricular size. Wall thickness is normal. The left ventricular systolic function is low normal with an estimated ejection fraction in the rang e of 50- 55%. There was limited left ventricular wall motion assessment due to poor endocardial visualization. No significant valvulopathies appreciated No pericardial effusion BP: / HR: Rhythm: Atrial fibrillation MEASUREMENTS (Male / Female) Normal Values Technical Quality:Technically difficult study 2D ECHO LV Diastolic Diameter PLAX 5.0 cm 4.2 - 5.9 / 3.9 - 5.3 cm LV Systolic Diameter PLAX 3.8 cm IVS Diastolic Thickness 1.3 cm 0.6 - 1.0 / 0.6 - 0.9 cm LVPW Diastolic Thickness 0.8 cm 0.6 - 1.0 / 0.6 - 0.9 cm LV Relative Wall Thickness 0.4 LA Systolic Diameter LX 4.2 cm 3.0 - 4.0 / 2.7 - 3.8 cm DOPPLER AV Peak Velocity 208.0 cm/s AV Peak Gradient 17.3 mmHg LVOT Peak Velocity 88.8 cm/s LVOT Peak Gradient 3.2 mmHg Mitral E Point Velocity 78.5 cm/s Mitral A Point Velocity 78.0 cm/s Mitral E to A Ratio 1.0 TR Peak Velocity 198.0 cm/s TR Peak Gradient 15.7 mmHg FINDINGS LEFT VENTRICLE Normal left ventricular size. Wall thickness is normal. The left ventricular systolic function is low normal with an estimated ejection fraction in the rang e of 50- 55%. There was limited left ventricular wall motion assessment due to poor endocardial visualization. RIGHT VENTRICLE Normal right ventricular size and systolic function. LEFT ATRIUM The left atrial size is normal. RIGHT ATRIUM The right atrial size is normal. ATRIAL SEPTUM Normal atrial septal thickness without atrial level shunting by limited color doppler interrogation. AORTA The aortic root and proximal ascending aorta are normal in size on limited imaging. MITRAL VALVE Structurally normal mitral valve. No mitral valve stenosis or regurgitation. AORTIC VALVE Trileaflet aortic valve. No aortic valve stenosis or regurgitation. TRICUSPID VALVE Structurally normal tricuspid valve. No tricuspid valve stenosis or regurgitation. PULMONARY VALVE The pulmonary valve is not well visualized. VESSELS The inferior vena cava is normal in size. PERICARDIUM No pericardial effusion. Delvin Tristan MD (Electronically Signed) Final Date:26 February 2017 14:34
--- NOTE | 2017-02-26 16:14 | EKG ---
Date Performed: 02/25/2017 Time Performed: 13:02:41 PTAGE: 71 years EKG: SINUS TACHYCARDIA WITH FREQUENT SUPRAVENTRICULAR PREMATURE COMPLEXES INCOMPLETE RIGHT BUNDL E BRANCH BLOCK POSSIBLE RIGHT VENTRICULAR HYPERTROPHY LEFT AXIS DEVIATION LEFT ANTERIOR FASCICULAR BL OCK NO PREVIOUS TRACING DOCTOR: Carl Bhat Interpretating Date/Time 02/26/2017 16:12:43
--- NOTE | 2017-02-26 16:15 | EKG ---
Date Performed: 02/25/2017 Time Performed: 19:42:38 PTAGE: 71 years EKG: Sinus rhythm WITH FREQUENT ATRIAL PREMATURE BEATS LEFT AXIS DEVIATION POSSIBLE LEFT ANTERIOR FASCICULAR BLOCK PAT IENT IS NO LONGER IN SVT COMPARED TO PRIOR TRACING PREVIOUS TRACING : 02/25/2017 19.21 DOCTOR: Carl Bhat Interpretating Date/Time 02/26/2017 16:14:06
--- NOTE | 2017-02-26 16:15 | EKG ---
Date Performed: 02/25/2017 Time Performed: 19:43:22 PTAGE: 71 years EKG: Sinus rhythm WITH PACS LEFT AXIS DEVIATION LEFT ANTERIOR FASCICULAR BLOCK NONSPECIFIC ST T WAVE CHANGES Compared to prior tracing no significant change PREVIOUS TRACING : 02/25/2017 19.21 DOCTOR: Carl Bhat Interpretating Date/Time 02/26/2017 16:14:44
--- NOTE | 2017-02-26 16:15 | EKG ---
Date Performed: 02/25/2017 Time Performed: 19:21:54 PTAGE: 71 years EKG: SUPRAVENTRICULAR TACHYCARDIA INCOMPLETE RIGHT BUNDLE BRANCH BLOCK Compared to the PREVIOUS TRACING SVT is new PREVIOUS TRACIN02/25/2017 13.02 DOCTOR: Carl Bhat Interpretating Date/Time 02/26/2017 16:13:15
[2017-02-26 16:56] LABS: HEMOGLOBIN A1b 0.8 %; HEMOGLOBIN Ao 85.7 %; HEMOGLOBIN LA1C 2.5 %; HEMOGLOBIN P3 3.6 %
--- NOTE | 2017-02-26 17:38 | HHI.PR ---
Subjective Remarks 71 YOWM with Pneumonia, Pl effusion, rt sided CP Breathing better Low grade fever Increased Troponin Legionella and Pneumococcal Ag negative Objective Vital Signs Vital Signs Date Time Temp Pulse Resp B/P Pulse Ox O2 Delivery O2 Flow Rate FiO2 02/26/17 16:00 99.2 83 18 115/60 92 02/26/17 13:04 96 Nasal Cannula 4.00 02/26/17 12:00 98.5 122 18 150/81 100 02/26/17 08:00 99.7 91 18 156/74 92 02/26/17 08:00 80 02/26/17 04:00 100.2 81 20 131/72 91 02/26/17 00:00 99.8 68 20 139/64 94 02/25/17 21:23 100.3 56 20 143/73 91 02/25/17 20:46 92 Nasal Cannula 4.00 02/25/17 20:04 95 20 120/69 95 Nasal Cannula 3 I/O 02/25/17 02/25/17 02/25/17 02/26/17 02/26/17 02/26/17 07:00 15:00 23:00 07:00 15:00 23:00 Intake Total 1834 ml Output Total 475 ml 200 ml Balance -475 ml 1634 ml Intake Oral 480 ml IV Total 1354 ml Output Urine Total 475 ml 200 ml # Voids 1 Result Diagram: 02/26/17 1109 02/26/17 1109 Objective Remarks GENERAL: WBWN Wm, NAD SKIN: Warm and dry. HEAD: Normocephalic. EYES: No scleral icterus. No injection or drainage. NECK: Supple, trachea midline. No JVD or lymphadenopathy. CARDIOVASCULAR: Regular rate and rhythm without murmurs, gallops, or rubs. RESPIRATORY: Breath sounds equal bilaterally. No accessory muscle use. Bronchial BS right lung base GASTROINTESTINAL: Abdomen soft, non-tender, nondistended. MUSCULOSKELETAL: No cyanosis, or edema. BACK: Nontender without obvious deformity. No CVA tenderness. A/P Assessment and Plan Pneumonia, Likly CAP Right Chest pain Pleural effusion, small Increased troponin PLAN: Cont Abx Zosyn and Zithro Check Cultures Rpt CXR If effusion increases, will need TC Avery Arauz MD Feb 26, 2017 17:38
--- NOTE | 2017-02-26 20:46 | MB ---
cc: AMRITA DUGAN MD DATE OF CONSULTATION 02/26/17 HISTORY OF PRESENT ILLNESS Mr. Pina is a 71 year old white male with history of asthma but no previous history of cardiac disease. He presented with right posterior back discomfort over the last week which is sharp, stabbing. He also has had increased shortness of breath. He was Diagnosed with right-sided pneumonia and started on antibiotics. He is currently feeling better. PAST MEDICAL HISTORY 1. Asthma 2. Fall seven years ago. 3. Chronic left-sided pain, 4. History of dental surgery. No history of hypertension, dyslipidemia, diabetes mellitus, coronary artery disease or CVA. MEDICATIONS Ibuprofen. ALLERGIES None. SOCIAL HISTORY The patient quit smoking in . He drinks alcohol rarely. He is . He has history of asbestos exposure. FAMILY HISTORY Negative for heart disease. REVIEW OF SYSTEMS Otherwise negative. PHYSICAL EXAMINATION VITAL SIGNS: Blood pressure 156/74, pulse 80 And irregular. HEENT: Negative. 2+ carotid upstrokes. No bruits. LUNGS: Decreased breath sounds at right base. HEART: Irregular with no murmur, gallop or rub. ABDOMEN: Soft. No bruits. EXTREMITIES: Without edema. 2+ distal pulses. NEUROLOGIC: Grossly nonfocal. CARDIOLOGY STUDIES EKG was reviewed and showed sinus tachycardia with frequent PVCs, left axis, left anterior fascicular block and incomplete right bundle branch block. LABORATORY DATA Hemoglobin 14.5, potassium 3.2, creatinine 1.0, AST 65, ALT 44, CK 434, CK-MB index 0.5, troponin 0.06, 0.04 and 0.04. BNP 158. Echocardiogram showed borderline left ventricular dysfunction with an ejection fraction 50-55% and no evidence of valvular heart disease or pericardial effusion. Follow up EKG showed narrow complex tachycardia suggestive of atrial flutter with 2:1 block. DIAGNOSES 1. Atypical chest pain. 2. Mildly abnormal troponin 3. Pneumonia. 4. Hypoxemia 5. Asthma 6. Narrow complex tachycardia, c/w paroxysmal atrial flutter. DISPOSITION Mr. Pina will be monitored on telemetry with serial enzymes and EKGs. We will continue therapy for pneumonia. His serial troponins have been unremarkable. His echocardiogram shows no significant left ventricular dysfunction. I will follow him for cardiology during his hospitalization. I will also see him back for followup in our office after discharge. MD BRITTANI Morales /7:34 PM /8:27 PM JULITO
[2017-02-27] VITALS (7 sets, daily range): BP systolic 110–137; BP diastolic 62–74; PULSE 58–87; RESP 17–20; TEMP 97.9–99.5; O2SAT 90–99
[2017-02-27] MEDS: PIPERACIL-TAZO 3.375 GM PREMIX 50 ML IV SCH ×3 (03:17→14:00)
[2017-02-27] MEDS: DOCUSATE SODIUM 50 MG/SENNA 8.6 MG TAB PO SCH ×2 (08:50→21:00)
[2017-02-27] MEDS: FUROSEMIDE 40 MG/4 ML VIAL IV PUSH SCH ×3 (09:00→17:32)
[2017-02-27] MEDS: SODIUM CHLORIDE 0.9% FLUSH 10 ML FLUSH IV FLUSH SCH (09:00)
--- NOTE | 2017-02-27 10:02 | PD.PN.STU ---
Subjective Remarks Patient reports that he is feeling "fair" today. He is no longer receiving supplemental O2 via nasal canula. He is still experiencing some right sided labored breathing and occasional right side sharp "jabbing" pain. He is still coughing occasionally but reports it is no longer productive. He has been up and walked. He denies sore throat but notes that his mouth and throat have been a little "dry"; he has not had any appetite changes. He reports rare sweats and chills. He denies lightheadedness, headaches, heart palpitations, nausea, and vomiting. Addendum by Dr. Peña I personally seen and examined this patient on 02/27/17 Discussed with medical student Agree with above [place] is referred to my independent note for more details Objective Vitals Vital Signs Date Time Temp Pulse Resp B/P Pulse Ox O2 Delivery O2 Flow Rate FiO2 02/27/17 08:00 97.9 58 20 137/72 99 02/27/17 04:30 98.4 61 17 117/67 94 02/27/17 00:30 98.5 86 18 127/62 96 02/26/17 21:36 98.6 76 20 135/77 92 02/26/17 16:00 99.2 83 18 115/60 92 02/26/17 13:04 96 Nasal Cannula 4.00 02/26/17 12:00 98.5 122 18 150/81 100 I/O 02/26/17 02/26/17 02/26/17 02/27/17 02/27/17 02/27/17 07:00 15:00 23:00 07:00 15:00 23:00 Intake Total 1834 ml Output Total 475 ml 200 ml 200 ml Balance -475 ml 1634 ml -200 ml Intake Oral 480 ml IV Total 1354 ml Output Urine Total 475 ml 200 ml 200 ml # Voids 1 # Bowel Movements 1 Result Diagram: 02/26/17 1109 02/26/17 1109 Objective Remarks General: Alert and cooperative. Oriented to person, place, and time. Does not appear to be in acute distress. HEENT: Normocephalic. No pharyngeal erythema Cardiovascular: Irregular rhythm. No murmurs or rubs appreciated. Pulmonary: No noted use of accessory muscles. Decreased lung sounds over right lung base. A/P Assessment and Plan 1. Pneumonia: Culture still inconclusive. Continue to treat with antibiotics Zosyn and Zithromax. 2. Right sided back pain: treat with analgesia as necessary. 3. Shortness of breath/hypoxemia: utilize supplemental O2 as necessary. 4. Pleural effusion: observe and monitor for expansion. If increase in size consider thoracentesis . 5. Afib: continue to monitor for irregular rhythm. 6. Hyperglycemia: continue to monitor and address with oral glycemic agents as necessary 7. Elevated Troponin: continue to monitor 8. Continue to monitor electrolytes and replace as necessary 9. Continue DVT prophylaxis with Lovenox Trudy Caceres M3 Feb 27, 2017 10:02 Ankur Peña MD Mar 01, 2017 18:55
[2017-02-27 10:59] LABS: BICARBONATE 26.3 MEQ/L (21.0-32.0); POTASSIUM 3.2 MEQ/L (3.5-5.1)
[2017-02-27] MEDS ORDERED: POTASSIUM CHLORIDE 10 MEQ CONTROLLED RELEASE TAB PO ONE (12:15)
[2017-02-27] MEDS: POTASSIUM CHLORIDE 20 MEQ CONTROLLED RELEASE TAB PO SCH ×3 (12:48→17:33)
--- NOTE | 2017-02-27 13:50 | HHI.PR ---
Subjective Remarks Awake alert sitting up in bed Facial color pink States less shortness of breath and feeling better Still has some right-sided flank pain (Deysi Miranda) Objective Objective Results - Vital Signs Date Time Temp Pulse Resp B/P Pulse Ox O2 Delivery O2 Flow Rate FiO2 02/27/17 12:00 99.0 80 18 110/73 92 02/27/17 10:26 94 21 02/27/17 08:00 97.9 58 20 137/72 99 02/27/17 04:30 98.4 61 17 117/67 94 02/27/17 00:30 98.5 86 18 127/62 96 02/26/17 21:36 98.6 76 20 135/77 92 02/26/17 16:00 99.2 83 18 115/60 92 I/O 02/26/17 02/26/17 02/26/17 02/27/17 02/27/17 02/27/17 07:00 15:00 23:00 07:00 15:00 23:00 Intake Total 1834 ml Output Total 475 ml 200 ml 200 ml Balance -475 ml 1634 ml -200 ml Intake Oral 480 ml IV Total 1354 ml Output Urine Total 475 ml 200 ml 200 ml # Voids 1 # Bowel Movements 1 (Deysi Miranda) Result Diagram: 02/26/17 1109 02/27/17 0859 ROS General: Fatigue, Weakness, Other (10 point ROS done positives noted) Pulmonary: Cough, SOB (Deysi Miranda) Physical Exam Physical Exam PHYSICAL EXAMINATION GENERAL: This is a obese male resting in the bed no acute shortness of breath noted. He is alert and awake,. HEAD: Normocephalic without any lesion or mass noted. Facial features appear symmetric. OROPHARYNGEAL: Oropharynx without erythema or edema. NECK: Supple. No nuchal rigidity or lymphadenopathy. Trachea midline without deviation. CARDIAC: Regular rhythm, regular rate, S1 and S2 are heard. Soft systolic murmur left sternal border LUNGS: Diminished to auscultation bilaterally. no wheeze, no rhonchi , probable mild rale. No use of accessory muscles on inspiration or expiration. ABDOMEN: Soft, obese Bowel sounds are heard in all four quadrants. EXTREMITIES: no edema. NEUROLOGICAL: Patient mood and affect appropriate. SKIN:Warm and moist (Deysi Miranda) A/P Assessment and Plan 1) Hypoxemia (2) Pleural effusion (3) Pneumonia (4) Lactic acidosis (5) Blood glucose elevated (6) Elevated troponin Vital signs reviewed, normal trends today Labs reviewed, hypokalemia, treated with oral potassium 20 mEq 1, recheck BMP in the morning O2 saturation 94, currently on room air for trial. Recheck labs in the morning Bowel regimen BM 1 today, Consolidated right middle and right lower lobe, small to moderate right parapneumonic effusion Community-acquired, 24-hour improvement noted with current treatment regimen, currently patient on room air shortness of breath controlled at rest Encourage patient to be out of bed up in chair, assisted to the bathroom this morning, will order physical therapy for evaluation and to evaluate strengthening and mobility. Was able to transfer and walk up the hallway with PT. Minimal shortness of breath continue duo nebs, oxygen, antibiotics, so far blood cultures are negative Consult pulmonary for expert opinion appreciate input, Hypoxemia, resolved with oxygen, dual nebs, monitor O2 sat and any signs of acute shortness of breath Elevated troponin 2-D echo done, no significant LVH Cardiology consult appreciate input, continue to monitor I&O, , will see him back in the office after discharge Lovenox for DVT prophylaxis PPI for PUD prophylaxis Discharge planning, review home with home health and rehabilitation versus continued rehabilitation for some deconditioning Discussed with nurse Discussed with patient Discussed with Dr. Peña, seen on his behalf (Deysi Miranda) Assessment and Plan seen, examined by myself, Dr Peña, today Discussed with patient, dyspnea much improved, however he still feels generally weak Physical therapy ordered Discussed with mid level provider The exam, history, and the medical decision-making described in the above note were completed with the assistance of the mid-level provider. I reviewed the findings presented. I attest that I had a [id number] encounter with the patient on the same day, and personally performed and documented my assessment and findings in the medical record. (Ankur Peña MD) Deysi Miranda Feb 27, 2017 13:50 Ankur Peña MD Feb 27, 2017 20:15
--- NOTE | 2017-02-27 17:19 | RADRPT ---
EXAM DATE/TIME: 02/27/2017 12:36 [facility] COMPARISON: CHEST SINGLE AP, February 25, 2017, 13:29. INDICATIONS : Pneumonia, short of breath, chest pain. MEDICAL HISTORY : asthma as a child SURGICAL HISTORY : None. ENCOUNTER: Initial ACUITY: 1 week PAIN SCORE: 4/10 LOCATION: Right chest FINDINGS: A single view of the chest continues to demonstrate dense consolidation right lung base with associat ed effusion. The effusion appears slightly smaller. Heart and mediastinal structures are stable. Left lung remains clear. CONCLUSION: Persistent consolidating airspace disease with pleural effusion in the right lung base. Slight decrease in pleural effusion is noted. Chano Lopez MD on February 27, 2017 at 17:17 Board Certified Radiologist. This report was verified electronically.
--- NOTE | 2017-02-27 17:40 | PD.CARD.PN ---
Subjective Subjective Remarks No angina, less SOB Objective Medications Current Medications Medications (Trade) Dose Ordered Sig/Roseann Route Start Time Stop Time Status Last Admin (NS Flush) 2 ml UNSCH PRN IV FLUSH 02/25/17 17:30 (NS Flush) 2 ml BID IV FLUSH 02/25/17 21:00 (Tylenol) 650 mg Q4H PRN PO 02/25/17 17:30 (Zofran Inj) 4 mg Q6H PRN IVP 02/25/17 17:30 (Lovenox Inj) 40 mg Q24H SQ 02/25/17 20:00 02/26/17 22:29 (Narcan Inj) 0.4 mg UNSCH PRN IV 02/25/17 17:30 (Irlanda-Colace) 1 tab BID PO 02/25/17 21:00 02/27/17 08:50 Magnesium Hydroxide 30 ml 30 ml Q12H PRN PO 02/25/17 17:30 Piperacillin Sod/ Tazobactam Sod 50 ml @ 100 mls/hr Q6H IV 02/25/17 20:00 02/27/17 14:00 (Zithromax Inj/ NS 250 ml Inj) 250 ml @ 250 mls/hr Q24H IV 02/25/17 20:00 02/26/17 22:28 (Lasix Inj) 40 mg BID@09,18 IV PUSH 02/26/17 09:00 02/27/17 17:32 (KCl) 20 meq QID PO 02/27/17 11:30 02/27/17 17:33 Vital Signs / I&O Vital Signs Date Time Temp Pulse Resp B/P Pulse Ox O2 Delivery O2 Flow Rate FiO2 02/27/17 16:00 99.5 83 18 129/74 90 02/27/17 12:00 99.0 80 18 110/73 92 02/27/17 10:26 94 21 02/27/17 08:00 97.9 58 20 137/72 99 02/27/17 04:30 98.4 61 17 117/67 94 02/27/17 00:30 98.5 86 18 127/62 96 02/26/17 21:36 98.6 76 20 135/77 92 I/O 02/26/17 02/26/17 02/26/17 02/27/17 02/27/1717 06:59 14:59 22:59 06:59 14:59 22:59 Intake Total 1834 ml Output Total 475 ml 200 ml 200 ml Balance -475 ml 1634 ml -200 ml Intake Oral 480 ml IV Total 1354 ml Output Urine Total 475 ml 200 ml 200 ml # Voids 1 4 # Bowel Movements 2 Physical Exam GENERAL: In NAD SKIN: Warm and dry. HEAD: Normocephalic. EYES: No scleral icterus. No injection or drainage. NECK: Supple, trachea midline. No JVD or lymphadenopathy. CARDIOVASCULAR: Irregular, without murmurs, gallops, or rubs. RESPIRATORY: Breath sounds equal bilaterally. No accessory muscle use. GASTROINTESTINAL: Abdomen soft, non-tender, nondistended. MUSCULOSKELETAL: No cyanosis, or edema. Laboratory Laboratory Tests Test 02/27/17 08:59 Sodium Level 138 MEQ/L Potassium Level 3.2 MEQ/L Chloride Level 103 MEQ/L Carbon Dioxide Level 26.3 MEQ/L Anion Gap 9 MEQ/L Blood Urea Nitrogen 25 MG/DL Creatinine 0.86 MG/DL Estimat Glomerular Filtration 88 ML/MIN Rate Random Glucose 190 MG/DL Calcium Level 7.9 MG/DL Imaging Last Impressions Chest X-Ray 02/27/17 0000 Signed Impressions: Service Date/Time: Monday, February 27, 2017 12:36 - CONCLUSION: Persistent consolidating airspace disease with pleural effusion in the right lung base. Slight decrease in pleural effusion is noted. Chano Lopez MD CT Angiography 02/25/17 1257 Signed Impressions: Service Date/Time: Saturday, February 25, 2017 15:24 - CONCLUSION: 1. No evidence of PE. 2. Consolidated right middle and right lower lobes 3. Small to moderate right parapneumonic effusion Chano Lopez MD Assessment and Plan Problem List: (1) Atrial fibrillation and flutter (2) Elevated troponin (3) Pneumonia (4) Hypoxemia Assessment and Plan In atrial fibrillation with increased VR this PM. Recommend to start and titrate short acting diltiazem for rate control, switch to long-acting diltiazem later. Also recommend full anticoagulation. I will schedule him to see me in the office for cardiology followup after discharge. Problem Qualifiers (1) Pneumonia: Cornelius Haynes MD Feb 27, 2017 17:40
--- NOTE | 2017-02-27 17:43 | HHI.PR ---
Subjective Remarks 71 YOWM with Pneumonia, Pl effusion, rt sided CP Breathing better Increased Troponin Legionella and Pneumococcal Ag negative no fever Objective Vital Signs Vital Signs Date Time Temp Pulse Resp B/P Pulse Ox O2 Delivery O2 Flow Rate FiO2 02/27/17 16:00 99.5 83 18 129/74 90 02/27/17 12:00 99.0 80 18 110/73 92 02/27/17 10:26 94 21 02/27/17 08:00 97.9 58 20 137/72 99 02/27/17 04:30 98.4 61 17 117/67 94 02/27/17 00:30 98.5 86 18 127/62 96 02/26/17 21:36 98.6 76 20 135/77 92 I/O 02/26/17 02/26/17 02/26/17 02/27/17 02/27/17 02/27/17 07:00 15:00 23:00 07:00 15:00 23:00 Intake Total 1834 ml Output Total 475 ml 200 ml 200 ml Balance -475 ml 1634 ml -200 ml Intake Oral 480 ml IV Total 1354 ml Output Urine Total 475 ml 200 ml 200 ml # Voids 1 4 # Bowel Movements 2 Result Diagram: 02/26/17 1109 02/27/17 0859 Objective Remarks GENERAL: WBWN Wm, NAD SKIN: Warm and dry. HEAD: Normocephalic. EYES: No scleral icterus. No injection or drainage. NECK: Supple, trachea midline. No JVD or lymphadenopathy. CARDIOVASCULAR: Regular rate and rhythm without murmurs, gallops, or rubs. RESPIRATORY: Breath sounds equal bilaterally. No accessory muscle use. Bronchial BS right lung base GASTROINTESTINAL: Abdomen soft, non-tender, nondistended. MUSCULOSKELETAL: No cyanosis, or edema. BACK: Nontender without obvious deformity. No CVA tenderness. A/P Assessment and Plan Pneumonia, Likly CAP Right Chest pain Pleural effusion, small Increased troponin PLAN: Cont Abx Zosyn and Zithro check CXR If effusion increases, will need TC Avery Arauz MD Feb 27, 2017 17:43
[2017-02-27] MEDS: DILTIAZEM HCL 30 MG TAB PO SCH (18:57)
[2017-02-28] VITALS (7 sets, daily range): BP systolic 112–129; BP diastolic 54–73; PULSE 57–82; RESP 16–20; TEMP 98.4–98.7; O2SAT 91–96
[2017-02-28] MEDS: PIPERACIL-TAZO 3.375 GM PREMIX 50 ML IV SCH ×5 (00:15→20:52)
[2017-02-28] MEDS: AZITHROMYCIN INJ 500 MG in SODIUM CHLOR 0.9% 250 ML INJ 250 ML IV SCH ×2 (00:15→20:52)
[2017-02-28] MEDS: ENOXAPARIN SODIUM 40 MG/0.4 ML SYRINGE SQ SCH ×2 (00:16→20:53)
[2017-02-28] MEDS: SODIUM CHLORIDE 0.9% FLUSH 10 ML FLUSH IV FLUSH SCH ×3 (00:16→20:53)
[2017-02-28] MEDS: DILTIAZEM HCL 30 MG TAB PO SCH ×4 (00:16→17:02)
[2017-02-28] MEDS: POTASSIUM CHLORIDE 20 MEQ CONTROLLED RELEASE TAB PO SCH ×6 (00:16→20:54)
[2017-02-28 08:13] LABS: AUTOMATED NEUTROPHIL # 6.9 TH/MM3 (1.8-7.7); BASOPHIL % 0.3 % (0.0-2.0); EOSINOPHIL # 0.2 TH/MM3 (0-0.4); EOSINOPHIL % 1.8 % (0.0-4.0); HEMATOCRIT 43.7 % (39.0-51.0); HEMO FLAGS DIFF FINAL; LYMPH % 23.2 % (9.0-44.0); LYMPHOCYTE # 2.4 TH/MM3 (1.0-4.8); MEAN CELL VOLUME 96.8 FL (80.0-100.0); MEAN CORPUSCULAR HEMOGLOBIN 34.2 PG (27.0-34.0); MEAN CORPUSCULAR HGB CONC 35.3 % (32.0-36.0); MONO % 8.2 % (0.0-8.0); NEUT % 66.5 % (16.0-70.0); PLATELET COUNT 209 TH/MM3 (150-450); RED BLOOD COUNT 4.51 MIL/MM3 (4.50-5.90); RED CELL DISTRIBUTION WIDTH 13.5 % (11.6-17.2); WHITE BLOOD COUNT 10.4 TH/MM3 (4.0-11.0)
[2017-02-28 08:36] LABS: BICARBONATE 27.7 MEQ/L (21.0-32.0); POTASSIUM 3.3 MEQ/L (3.5-5.1)
[2017-02-28] MEDS: DOCUSATE SODIUM 50 MG/SENNA 8.6 MG TAB PO SCH (09:15)
[2017-02-28] MEDS: FUROSEMIDE 40 MG/4 ML VIAL IV PUSH SCH ×2 (09:15→17:03)
--- NOTE | 2017-02-28 13:41 | HHI.PR ---
Subjective Remarks Resting in the bed, dozing lightly but responds readily to verbal stimuli Has oxygen back on Ambulated with physical therapy Encourage patient to be up in chair and up in room call for assistance if needed (Deysi Miranda) Objective Objective Results - Vital Signs Date Time Temp Pulse Resp B/P Pulse Ox O2 Delivery O2 Flow Rate FiO2 02/28/17 12:00 98.7 57 18 117/68 93 02/28/17 08:00 98.4 64 20 122/71 91 02/28/17 04:00 98.7 72 20 126/73 91 02/28/17 00:00 98.4 75 20 121/59 92 02/27/17 20:00 98.9 87 20 121/71 93 02/27/17 16:00 99.5 83 18 129/74 90 I/O 02/27/17 02/27/17 02/27/17 02/28/17 02/28/17 02/28/17 07:00 15:00 23:00 07:00 15:00 23:00 Output Total 800 ml 600 ml Balance -800 ml -600 ml Output Urine Total 800 ml 600 ml # Voids 4 # Bowel Movements 2 (Deysi Miranda) Result Diagram: 02/28/1725 02/28/17 0725 ROS General: Fatigue, Weakness (improving), Other (10 point ROS done positives noted) Pulmonary: Cough (occasional), SOB (exertional), Other (right sided flank pain mild, improved from admission but still persist) GI: Diarrhea (stools are loose patient's currently on stool softeners) (Deysi Miranda) Physical Exam Physical Exam PHYSICAL EXAMINATION GENERAL: This is a obese male who appears to be in no acute distress. He is awake HEAD: Normocephalic Facial features appear symmetric. OROPHARYNGEAL: Oropharynx without erythema or edema. NECK: Supple. No nuchal rigidity or lymphadenopathy. Trachea midline without deviation. CARDIAC: Regular rhythm, regular rate, S1 and S2 are heard. LUNGS: Decreased and diminished to auscultation especially on right side No use of accessory muscles on inspiration or expiration, but does note shortness of breath with activity ABDOMEN: Round, Soft, nontender Bowel sounds are heard in all four quadrants., Stools are loose 2 today, patient's currently on stool softeners EXTREMITIES: Trace lower extremity edema. Pulses equal bilateral. NEUROLOGICAL: Patient mood and affect appropriate. SKIN:Warm and moist (Deysi Miranda) A/P Assessment and Plan 1) Hypoxemia (2) Pleural effusion (3) Pneumonia (4) Lactic acidosis (5) Blood glucose elevated (6) Elevated troponin Vital signs reviewed, normal trends today Labs reviewed, hypokalemia, treated with oral potassium 40 mEq divided into 2 doses, recheck BMP in the morning O2 saturation 91, using O2 at rest in the bed, will order walk test for tomorrow a.m. to see what patient's O2 sat is with exertion and whether he will need possible home O2. Bowel regimen BM 2 today, patient states bowels are loose, will DC stool softeners instructed patient to ask for laxative if no BM on third day Consolidated right middle and right lower lobe, small to moderate right parapneumonic effusion Community-acquired, improvement noted with current treatment regimen, patient still has some exertional dyspnea noted , O2 sat 91 , patient is now wearing his oxygen again. Working with physical therapy who states patient should be safe at home, with some possible dependent home needs. continue duo nebs, oxygen, antibiotics, so far blood cultures are negative Consult pulmonary for expert opinion appreciate input, Hypoxemia, resolved from admission, O2 sat 91, walk test to be done in the morning Patient still complains of some mild to moderate right sided flank pain. Pain management, repeat chest x-ray still shows pleural effusion, mildly decreased on the right side. Possible thoracentesis? Continue physical therapy and encourage patient to be active with safety. Nutrition discussed as well as daily activity Elevated troponin 2-D echo done, no significant LVH Cardiology consult appreciate input, continue to monitor I&O, , will see him back in the office after discharge Lovenox for DVT prophylaxis PPI for PUD prophylaxis Discharge planning, probable home when patient stable Discussed with nurse Discussed with patient Discussed with Dr. Peña, seen on his behalf (Deysi Miranda) Assessment and Plan seen, examined by myself, Dr Peña, today Discussed with patient Physical community-acquired pneumonia Some pleuritic pain Pleural effusion [employer] following If significant amount of fluid, then possible thoracentesis Discussed with mid level provider The exam, history, and the medical decision-making described in the above note were completed with the assistance of the mid-level provider. I reviewed the findings presented. I attest that I had a [id number] encounter with the patient on the same day, and personally performed and documented my assessment and findings in the medical record. (nAkur Peña MD) Deysi Miranda Feb 28, 2017 13:41 Ankur Peña MD Feb 28, 2017 18:53
--- NOTE | 2017-02-28 14:05 | PD.CARD.PN ---
Objective Vital Signs / I&O Vital Signs Date Time Temp Pulse Resp B/P Pulse Ox O2 Delivery O2 Flow Rate FiO2 02/28/17 12:00 98.7 57 18 117/68 93 02/28/17 08:00 98.4 64 20 122/71 91 02/28/17 07:00 81 02/28/17 04:00 98.7 72 20 126/73 91 02/28/17 00:00 98.4 75 20 121/59 92 02/27/17 20:00 98.9 87 20 121/71 93 02/27/17 16:00 99.5 83 18 129/74 90 I/O 02/27/17 02/27/17 02/27/17 02/28/17 02/28/17 02/28/17 07:00 15:00 23:00 07:00 15:00 23:00 Output Total 800 ml 600 ml Balance -800 ml -600 ml Output Urine Total 800 ml 600 ml # Voids 4 # Bowel Movements 2 Laboratory Laboratory Tests Test 02/28/17 07:25 White Blood Count 10.4 TH/MM3 Red Blood Count 4.51 MIL/MM3 Hemoglobin 15.4 GM/DL Hematocrit 43.7 % Mean Corpuscular Volume 96.8 FL Mean Corpuscular Hemoglobin 34.2 PG Mean Corpuscular Hemoglobin 35.3 % Concent Red Cell Distribution Width 13.5 % Platelet Count 209 TH/MM3 Mean Platelet Volume 8.4 FL Neutrophils (%) (Auto) 66.5 % Lymphocytes (%) (Auto) 23.2 % Monocytes (%) (Auto) 8.2 % Eosinophils (%) (Auto) 1.8 % Basophils (%) (Auto) 0.3 % Neutrophils # (Auto) 6.9 TH/MM3 Lymphocytes # (Auto) 2.4 TH/MM3 Monocytes # (Auto) 0.9 TH/MM3 Eosinophils # (Auto) 0.2 TH/MM3 Basophils # (Auto) 0.0 TH/MM3 CBC Comment DIFF FINAL Differential Comment Sodium Level 140 MEQ/L Potassium Level 3.3 MEQ/L Chloride Level 105 MEQ/L Carbon Dioxide Level 27.7 MEQ/L Anion Gap 7 MEQ/L Blood Urea Nitrogen 19 MG/DL Creatinine 0.81 MG/DL Estimat Glomerular Filtration 94 ML/MIN Rate Random Glucose 110 MG/DL Calcium Level 8.0 MG/DL Assessment and Plan Problem List: (1) Atrial fibrillation and flutter (2) Elevated troponin (3) Pneumonia (4) Hypoxemia Assessment and Plan: 71 Y/O M ADMITTED C SOB HAS PNEUMONIA RLL AND AF S SX ECHO LOW NL LVF 55 LA DIAMETER 4.2 CM HE IS AFEBRILE AND FEELS BETTER V BS R NO RALES IRREG NO S3 WILL BEGIN ELIQUIS OK TO CHANGE TO LONG ACTING DILTIAZEM Problem Qualifiers (1) Pneumonia: Moo Fournier DO Feb 28, 2017 14:05
[2017-02-28] MEDS: APIXABAN 5 MG TABLET PO SCH (20:53)
[2017-03-01] VITALS (8 sets, daily range): BP systolic 118–151; BP diastolic 59–89; PULSE 66–83; RESP 16–20; TEMP 98.1–99.4; O2SAT 91–96
[2017-03-01] MEDS: DILTIAZEM HCL 30 MG TAB PO SCH ×4 (00:47→18:20)
[2017-03-01] MEDS: PIPERACIL-TAZO 3.375 GM PREMIX 50 ML IV SCH ×2 (00:51→09:36)
[2017-03-01] MEDS: SODIUM CHLORIDE 0.9% FLUSH 10 ML FLUSH IV FLUSH SCH ×2 (09:00→21:00)
[2017-03-01 09:28] LABS: BICARBONATE 30.1 MEQ/L (21.0-32.0)
[2017-03-01 09:39] LABS: MAGNESIUM 2.1 MG/DL (1.5-2.5)
[2017-03-01] MEDS: FUROSEMIDE 40 MG/4 ML VIAL IV PUSH SCH ×2 (09:39→18:21)
[2017-03-01] MEDS: APIXABAN 5 MG TABLET PO SCH ×2 (09:40→22:34)
[2017-03-01] MEDS: POTASSIUM CHLORIDE 20 MEQ CONTROLLED RELEASE TAB PO SCH ×4 (09:40→22:34)
--- NOTE | 2017-03-01 13:58 | HHI.PR ---
Subjective Remarks 71 YOWM with Pneumonia, Pl effusion, rt sided CP Breathing better Increased Troponin Legionella and Pneumococcal Ag negative no fever Objective Vital Signs Vital Signs Date Time Temp Pulse Resp B/P Pulse Ox O2 Delivery O2 Flow Rate FiO2 03/01/17 12:00 99.4 79 18 145/89 96 03/01/17 08:00 98.1 70 16 137/64 94 03/01/17 04:00 98.4 66 20 136/65 95 03/01/17 00:00 98.2 76 20 118/59 93 02/28/17 20:00 76 02/28/17 20:00 98.5 71 20 112/54 96 02/28/17 16:00 98.4 82 16 129/66 94 I/O 02/28/17 02/28/17 02/28/17 03/01/17 03/01/17 03/01/17 07:00 15:00 23:00 07:00 15:00 23:00 Intake Total 840 ml 715 ml Output Total 600 ml 975 ml 500 ml 200 ml Balance -600 ml -975 ml 340 ml 515 ml Intake Oral 840 ml 715 ml Output Urine Total 600 ml 975 ml 500 ml 200 ml # Bowel Movements 0 0 0 Result Diagram: 02/28/17 0725 03/01/17812 Objective Remarks GENERAL: WBWN Wm, NAD SKIN: Warm and dry. HEAD: Normocephalic. EYES: No scleral icterus. No injection or drainage. NECK: Supple, trachea midline. No JVD or lymphadenopathy. CARDIOVASCULAR: Regular rate and rhythm without murmurs, gallops, or rubs. RESPIRATORY: Breath sounds equal bilaterally. No accessory muscle use. Bronchial BS right lung base GASTROINTESTINAL: Abdomen soft, non-tender, nondistended. MUSCULOSKELETAL: No cyanosis, or edema. BACK: Nontender without obvious deformity. No CVA tenderness. A/P Assessment and Plan Pneumonia, Likly CAP Right Chest pain Pleural effusion, small Increased troponin PLAN: Cont Abx DC Zosyn and Zithro Augmentin 875 mg po BID check CXR If effusion increases, will need TC Avery Arauz MD Mar 01, 2017 13:58
--- NOTE | 2017-03-01 14:54 | HHI.PR ---
Subjective Remarks Sitting up in chair, states he's more comfortable that way Still complains of some right lower flank pain , mild Awaiting walk test currently on room air Telemetry shows sinus rhythm with multiple PACs, first-degree AV block Objective Objective Results - Vital Signs Date Time Temp Pulse Resp B/P Pulse Ox O2 Delivery O2 Flow Rate FiO2 03/01/17 12:00 99.4 79 18 145/89 96 03/01/17 08:00 98.1 70 16 137/64 94 03/01/17 04:00 98.4 66 20 136/65 95 03/01/17 00:00 98.2 76 20 118/59 93 02/28/17 20:00 76 02/28/17 20:00 98.5 71 20 112/54 96 02/28/17 16:00 98.4 82 16 129/66 94 I/O 02/28/17 02/28/17 02/28/17 03/01/17 03/01/17 03/01/17 06:59 14:59 22:59 06:59 14:59 22:59 Intake Total 840 ml 715 ml 25 ml Output Total 600 ml 975 ml 500 ml 200 ml Balance -600 ml -975 ml 340 ml 515 ml 25 ml Intake Oral 840 ml 715 ml 25 ml Output Urine Total 600 ml 975 ml 500 ml 200 ml # Voids 1 # Bowel Movements 0 0 0 1 Result Diagram: 02/28/1772403/01/17812 ROS General: Fatigue, Weakness, Other (10 point ROS done positives noted) Pulmonary: Cough (occasional), SOB Physical Exam Physical Exam PHYSICAL EXAMINATION GENERAL: This is a obese elderly male Sitting up in the chair He is alert and awake, HEAD: Normocephalic without any lesion or mass noted. Facial features appear symmetric. OROPHARYNGEAL: Oropharynx without erythema or edema. NECK: Supple. No nuchal rigidity or lymphadenopathy. Trachea midline without deviation. CARDIAC: Regular rhythm, regular rate, S1 and S2 are heard, telemetry on denies any chest pain LUNGS: Diminished to auscultation bilaterally with special attention to right lower lobe. ABDOMEN: Soft, nontender, no organomegaly or masses. Bowel sounds are heard in all four quadrants. No rebound. No guarding. EXTREMITIES: Trace edema. Pulses equal bilateral. NEUROLOGICAL: Patient mood and affect appropriate SKIN:Warm and moist A/P Assessment and Plan 1) Hypoxemia (2) Pleural effusion (3) Pneumonia (4) Lactic acidosis (5) Blood glucose elevated (6) Elevated troponin 7 dysrhythmias Vital signs reviewed, normal trends today Labs reviewed, hypokalemia, treated with oral potassium 40 mEq divided into 2 doses, recheck BMP in the morning O2 saturation 91, using O2 at rest in the bed, will order walk test for tomorrow a.m. to see what patient's O2 sat is with exertion and whether he will need possible home O2., Mag level normal 2.1 Bowel regimen BM 2 today, patient states bowels are loose, will DC stool softeners instructed patient to ask for laxative if no BM on third day Dysrhythmias, noted early a.m. patient was up in the bathroom bearing down to have bowel movement, 11 beat run of V. tach called on telemetry, she denied any chest pain and was asymptomatic. Reviewed rhythm strips since admission patient has had one other event of tachycardia, probable atrial tachycardia Controlled with meds, EKGs are noted sinus rhythm first degree AV block with multiple PACs. 2-D echo ordered. Consolidated right middle and right lower lobe, small to moderate right parapneumonic effusion Community-acquired, improvement noted with current treatment regimen, patient still has some exertional dyspnea noted , O2 sat 91 , patient is now wearing his oxygen again as needed , planned for walk test today , blood cultures are negative Consult pulmonary for expert opinion appreciate input, antibiotic now Augmentin 875 mg by mouth twice a day, IV antibiotics DC'd Chest x-ray to review pleural effusion, patient still complains of some right lower flank pain around the base of the right lung, possible drainage of effusion if needed Hypoxemia, resolved from admission, patient is sitting up in chair pending walk test Patient still complains of some mild to moderate right sided flank pain. Pain management, Physical therapy has assisted him with ambulation, patient currently states he is more comfortable been up in recliner Nutrition discussed as well as daily activity Elevated troponin 2-D echo done, no significant LVH Cardiology consult appreciate input, continue to monitor I&O, , will see him back in the office after discharge Lovenox for DVT prophylaxis PPI for PUD prophylaxis Discharge planning, probable home when patient stable, hopefully within the next day or 2 Discussed with nurse Discussed with patient Discussed with Dr. Kayyal, seen on his behalf Deysi Miranda Mar 01, 2017 14:54
[2017-03-01] MEDS: AMOXICILLIN/CLAVULANATE K 875 MG TAB PO SCH (22:34)
[2017-03-02] VITALS (10 sets, daily range): BP systolic 105–148; BP diastolic 58–68; PULSE 57–148; RESP 14–20; TEMP 98.1–99.5; O2SAT 92–98
[2017-03-02] MEDS: SODIUM CHLORIDE 0.9% FLUSH 10 ML FLUSH IV FLUSH SCH ×2 (09:00→20:16)
[2017-03-02] MEDS: DILTIAZEM-CD 180 MG CAP ER PO SCH (09:00)
[2017-03-02] MEDS: AMOXICILLIN/CLAVULANATE K 875 MG TAB PO SCH ×2 (09:57→20:16)
[2017-03-02] MEDS: APIXABAN 5 MG TABLET PO SCH ×2 (09:57→20:16)
[2017-03-02] MEDS: POTASSIUM CHLORIDE 20 MEQ CONTROLLED RELEASE TAB PO SCH ×4 (09:57→20:15)
[2017-03-02] MEDS: FUROSEMIDE 40 MG/4 ML VIAL IV PUSH SCH ×2 (10:08→17:04)
--- NOTE | 2017-03-02 10:19 | EKG ---
Date Performed: 03/01/2017 Time Performed: 10:07:23 PTAGE: 71 years EKG: Probable atrial fibrillation, which is new since prior tracing MARKED LEFT AXIS DEVIATION R IGHT BUNDLE BRANCH BLOCK PROBABLE SEPTAL MYOCARDIAL INFARCTION , OF INDETERMINATE AGE Clinical correl ation is recommended ABNORMAL ECG PREVIOUS TRACING : 02/25/2017 19.43 DOCTOR: Javan Keene Interpretating Date/Time 03/02/2017 10:18:49
--- NOTE | 2017-03-02 10:29 | PD.PN.STU ---
Subjective Remarks Patient reports he is feeling "fair" this morning. He is eating and would like to try to walk around some today. He reports intermittent cough that is not productive and mild shortness of breath. He has not been able to get restful sleep the last couple of nights because he cannot get comfortable in the bed or the chair. He reports occasional "sharp" right-sided back pain. He denies lightheadedness, headaches, chest pain, and heart palpitations. Objective Vitals Vital Signs Date Time Temp Pulse Resp B/P Pulse Ox O2 Delivery O2 Flow Rate FiO2 03/02/17 08:00 99.2 73 18 111/58 93 03/02/17 04:00 98.1 70 20 116/58 96 03/02/17 00:00 98.6 76 20 148/68 94 03/01/17 20:03 98.7 79 20 151/69 93 03/01/17 19:00 75 03/01/17 16:00 98.7 83 16 131/64 91 03/01/17 12:00 99.4 79 18 145/89 96 I/O 03/01/17 03/01/17 03/01/17 03/02/17 03/02/17 03/02/17 07:00 15:00 23:00 07:00 15:00 23:00 Intake Total 715 ml 25 ml Output Total 200 ml 3000 ml Balance 515 ml 25 ml -3000 ml Intake Oral 715 ml 25 ml Output Urine Total 200 ml 3000 ml # Voids 1 # Bowel Movements 0 1 2 Result Diagram: 02/28/17 0725 03/01/17 0813 Objective Remarks General: Alert and cooperative. Oriented to person, place, and time. Does not appear to be in acute distress. HEENT: Normocephalic. No pharyngeal erythema Cardiovascular: RRR, S1 S2 normal. No murmurs or rubs appreciated. Pulmonary: No noted use of accessory muscles. Decreased lung sounds over right lung base. A/P Assessment and Plan 1. Pneumonia: Culture still inconclusive. Continue to treat with antibiotics Zosyn and Zithromax. 2. Right sided back pain: treat with analgesia as necessary. 3. Shortness of breath/hypoxemia: utilize supplemental O2 as necessary. 4. Pleural effusion: observe and monitor for expansion. If increase in size consider thoracentesis . 5. Afib/tachycardia/AV block: continue to monitor for irregular rhythm. 6. Hyperglycemia: continue to monitor and address with oral glycemic agents as necessary 7. Elevated Troponin: Appears to have resolved. Continue to monitor. 8. Continue to monitor electrolytes and replace as necessary 9. Continue DVT prophylaxis with Lovenox Addendum by Dr. Peña I personally seen and examined this patient Discussed with medical student Agree with above Tracy is referred to my independent note for more details Trudy Caceres Mar 02, 2017 10:29 Ankur Peña MD Mar 05, 2017 18:47
--- NOTE | 2017-03-02 11:49 | HHI.PR ---
Subjective Remarks Resting in the bed, using oxygen right now Still complains of some right lower flank pain , audible air breath sounds right lung Telemetry shows sinus rhythm with multiple PACs, first-degree AV block Temp 99.2 (Deysi Miranda) Objective Objective Results - Vital Signs Date Time Temp Pulse Resp B/P Pulse Ox O2 Delivery O2 Flow Rate FiO2 03/02/17 08:00 99.2 73 18 111/58 93 03/02/17 04:00 98.1 70 20 116/58 96 03/02/17 00:00 98.6 76 20 148/68 94 03/01/17 20:03 98.7 79 20 151/69 93 03/01/17 19:00 75 03/01/17 16:00 98.7 83 16 131/64 91 03/01/17 12:00 99.4 79 18 145/89 96 I/O 03/01/17 03/01/17 03/01/17 03/02/17 03/02/17 03/02/17 06:59 14:59 22:59 06:59 14:59 22:59 Intake Total 715 ml 25 ml Output Total 200 ml 3000 ml Balance 515 ml 25 ml -3000 ml Intake Oral 715 ml 25 ml Output Urine Total 200 ml 3000 ml # Voids 1 # Bowel Movements 0 1 2 (Deysi Miranda) Result Diagram: 02/28/17 0725 03/01/17 0813 Physical Exam Physical Exam PHYSICAL EXAMINATION GENERAL: This is a obese male Resting in the bed O2 on He is alert and awake, HEAD: Normocephalic without any lesion or mass noted. Facial features appear symmetric. OROPHARYNGEAL: Oropharynx without erythema or edema. NECK: Supple. No nuchal rigidity or lymphadenopathy. Trachea midline without deviation. CARDIAC: Regular rhythm, regular rate, S1 and S2 are heard. No audible murmur LUNGS: Clear to auscultation except for right lower lobe, audible air sounds which is different from the left. ABDOMEN: Soft, nontender, no organomegaly or masses. Bowel sounds are heard in all four quadrants. No rebound. No guarding. EXTREMITIES: No lower extremity edema. Resolved NEUROLOGICAL: Patient mood and affect appropriate SKIN:Warm and moist (Deysi Miranda) A/P Assessment and Plan 1) Hypoxemia (2) Pleural effusion (3) Pneumonia (4) Lactic acidosis (5) Blood glucose elevated (6) Elevated troponin 7 dysrhythmias Vital signs reviewed, temp, 99.2 Labs reviewed, O2 saturation 91, using O2 at rest in the bed, walk test ordered for patient on a.m. of discharge, still wearing O2 off and on. Mag level normal 2.1 Bowel regimen BM daily, soft Dysrhythmias, patient remains monitored on telemetry, no further dysrhythmias noted 2-D echo, EF 50-55% Controlled with meds, EKGs are noted sinus rhythm first degree AV block with multiple PACs. Consolidated right middle and right lower lobe, small to moderate right parapneumonic effusion, still has audible air sound in right lower lobe Community-acquired, improvement noted with current treatment regimen, patient still has some exertional dyspnea noted , O2 sat 91 , patient is now wearing his oxygen again as needed , blood cultures are negative Consult pulmonary for expert opinion appreciate input, antibiotic now Augmentin 875 mg by mouth twice a day, IV antibiotics DC'd Patient was still complained with an occasional right lower flank pain, sharp, but not constant, with certain movement Chest x-ray ordered AP and lateral to review for comparison. Patient should begin ready for discharge soon, but still complains of pain right lower flank Hypoxemia, resolved , continues to wear oxygen off and on, coverage patient to leave it off and see how he feels just possible Physical therapy has assisted him with ambulation, should be safe to go home , has assistance at home Elevated troponin 2-D echo done, no significant LVH, EF 50-55% Cardiology consult appreciate input, continue to monitor I&O, , will see him back in the office after discharge Lovenox for DVT prophylaxis PPI for PUD prophylaxis Discharge planning, probable home when patient stable, hopefully within the next day or so dependent on any further pulmonary needs Slow gradual improvements Discussed with nurse Discussed with patient Discussed with Dr. Peña, seen on his behalf (Deysi Miranda) Assessment and Plan seen, examined by myself, Dr Peña, today Discussed with patient, he has episodes of spasm in the right posterior chest wall This wakes him up from sleep Flexeril daily at bedtime 10 mg ordered Discussed with [facility] level provider The exam, history, and the medical decision-making described in the above note were completed with the assistance of the mid-level provider. I reviewed the findings presented. I attest that I had a [id number] encounter with the patient on the same day, and personally performed and documented my assessment and findings in the medical record. (Ankur Peña MD) Deysi Miranda Mar 02, 2017 11:49 Ankur Peña MD Mar 02, 2017 20:48
[2017-03-02 12:55] LABS: BICARBONATE 25.9 MEQ/L (21.0-32.0); POTASSIUM 4.3 MEQ/L (3.5-5.1)
--- NOTE | 2017-03-02 14:15 | RADRPT ---
EXAM DATE/TIME: 03/02/2017 13:39 [place] COMPARISON: CT PULMONARY ANGIOGRAM, February 25, 2017, 15:24. CHEST SINGLE AP, February 27, 2017, 12:36. INDICATIONS : Pleural effusion. MEDICAL HISTORY : None. SURGICAL HISTORY : None. ENCOUNTER: Initial ACUITY: 1 week PAIN SCORE: 5/10 LOCATION: Right chest FINDINGS: The exam demonstrates a moderate size right pleural effusion. This is similar to previous exam. The l eft lung is clear. The heart is enlarged. There is consolidation of the right middle lobe. The osseou s structures are grossly intact. CONCLUSION: 1. Right-sided pleural effusion and consolidation of the right middle lobe unchanged from prior of 06/05. Ilya Ricci MD on March 02, 2017 at 14:13 Board Certified Radiologist. This report was verified electronically.
--- NOTE | 2017-03-02 15:02 | PD.CARD.PN ---
Subjective Subjective Remarks No angina, mild FLYNN Objective Medications Current Medications Medications (Trade) Dose Ordered Sig/Roseann Route Start Time Stop Time Status Last Admin (NS Flush) 2 ml UNSCH PRN IV FLUSH 02/25/17 17:30 (NS Flush) 2 ml BID IV FLUSH 02/25/17 21:00 03/02/17 09:00 (Tylenol) 650 mg Q4H PRN PO 02/25/17 17:30 02/28/17 20:56 (Zofran Inj) 4 mg Q6H PRN IVP 02/25/17 17:30 (Narcan Inj) 0.4 mg UNSCH PRN IV 02/25/17 17:30 (Milk Of Magnesia Liq) 30 ml Q12H PRN PO 02/25/17 17:30 (Lasix Inj) 40 mg BID@,18 IV PUSH 02/26/17 09:00 03/02/17 10:08 (KCl) 40 meq QID PO 02/28/17 18:00 03/02/17 13:08 (Eliquis) 5 mg BID PO 02/28/17 21:00 03/02/17 09:57 (Augmentin) 875 mg Q12HR PO 03/01/17 21:00 03/02/17 09:57 (Cardizem Cd) 180 mg DAILY PO 03/02/17 09:00 Vital Signs / I&O Vital Signs Date Time Temp Pulse Resp B/P Pulse Ox O2 Delivery O2 Flow Rate FiO2 03/02/17 12:00 98.3 65 16 120/64 94 03/02/17 08:00 99.2 73 18 111/58 93 03/02/17 04:00 98.1 70 20 116/58 96 03/02/17 00:00 98.6 76 20 148/68 94 03/01/17 20:03 98.7 79 20 151/69 93 03/01/17 19:00 75 03/01/17 16:00 98.7 83 16 131/64 91 I/O 03/01/17 03/01/17 03/01/17 03/02/17 03/02/17 03/02/17 06:59 14:59 22:59 06:59 14:59 22:59 Intake Total 715 ml 25 ml 1200 ml Output Total 200 ml 3000 ml 1735 ml Balance 515 ml 25 ml -3000 ml -535 ml Intake Oral 715 ml 25 ml 1200 ml Output Urine Total 200 ml 3000 ml 1735 ml # Voids 1 # Bowel Movements 0 1 2 1 Physical Exam GENERAL: In NAD SKIN: Warm and dry. HEAD: Normocephalic. EYES: No scleral icterus. No injection or drainage. NECK: Supple, trachea midline. No JVD or lymphadenopathy. CARDIOVASCULAR: Irregular, without murmurs, gallops, or rubs. RESPIRATORY: Breath sounds equal bilaterally. No accessory muscle use. GASTROINTESTINAL: Abdomen soft, non-tender, nondistended. MUSCULOSKELETAL: No cyanosis, or edema. Laboratory Laboratory Tests Test 03/02/17 11:25 Sodium Level 138 MEQ/L Potassium Level 4.3 MEQ/L Chloride Level 104 MEQ/L Carbon Dioxide Level 25.9 MEQ/L Anion Gap 8 MEQ/L Blood Urea Nitrogen 13 MG/DL Creatinine 0.75 MG/DL Estimat Glomerular Filtration 103 ML/MIN Rate Random Glucose 93 MG/DL Calcium Level 9.1 MG/DL Magnesium Level 2.0 MG/DL Imaging Last Impressions Chest X-Ray 03/02/17 0000 Signed Impressions: Service Date/Time: Thursday, March 02, 2017 13:39 - CONCLUSION: 1. Right- sided pleural effusion and consolidation of the right middle lobe unchanged from prior of 02/27/17. Ilya Ricci MD CT Angiography 02/25/17 1257 Signed Impressions: Service Date/Time: Saturday, February 25, 2017 15:24 - CONCLUSION: 1. No evidence of PE. 2. Consolidated right middle and right lower lobes 3. Small to moderate right parapneumonic effusion Chano Lopez MD Assessment and Plan Problem List: (1) Atrial fibrillation and flutter (2) Elevated troponin (3) Pneumonia (4) Hypoxemia Assessment and Plan Rate controlled. Continue diltiazem. Anticoagulation with Eliquis. Continue tx for pneumonia. Increase activity. I will schedule him to see me in the office for cardiology followup after discharge. Problem Qualifiers (1) Pneumonia: Cornelius Haynes MD Mar 02, 2017 15:02
--- NOTE | 2017-03-02 19:07 | HHI.PR ---
Subjective Remarks 71 YOWM with Pneumonia, Pl effusion, rt sided CP Breathing better Increased Troponin Legionella and Pneumococcal Ag negative no fever CXR stable infilt and effusion. Objective Vital Signs Vital Signs Date Time Temp Pulse Resp B/P Pulse Ox O2 Delivery O2 Flow Rate FiO2 03/02/17 16:00 98.7 74 14 122/63 93 03/02/17 12:00 98.3 65 16 120/64 94 03/02/17 08:00 99.2 73 18 111/58 93 03/02/17 08:00 72 03/02/17 04:00 98.1 70 20 116/58 96 03/02/17 00:00 98.6 76 20 148/68 94 03/01/17 20:03 98.7 79 20 151/69 93 I/O 03/01/17 03/01/17 03/01/17 03/02/17 03/02/17 03/02/17 07:00 15:00 23:00 07:00 15:00 23:00 Intake Total 715 ml 25 ml 1200 ml Output Total 200 ml 3000 ml 1735 ml Balance 515 ml 25 ml -3000 ml -535 ml Intake Oral 715 ml 25 ml 1200 ml Output Urine Total 200 ml 3000 ml 1735 ml # Voids 1 # Bowel Movements 0 1 2 1 Result Diagram: 02/28/17 0725 03/02/17 1125 Objective Remarks GENERAL: WBWN Wm, NAD SKIN: Warm and dry. HEAD: Normocephalic. EYES: No scleral icterus. No injection or drainage. NECK: Supple, trachea midline. No JVD or lymphadenopathy. CARDIOVASCULAR: Regular rate and rhythm without murmurs, gallops, or rubs. RESPIRATORY: Breath sounds equal bilaterally. No accessory muscle use. Bronchial BS right lung base GASTROINTESTINAL: Abdomen soft, non-tender, nondistended. MUSCULOSKELETAL: No cyanosis, or edema. BACK: Nontender without obvious deformity. No CVA tenderness. A/P Assessment and Plan Pneumonia, Likly CAP Right Chest pain Pleural effusion, small Increased troponin PLAN: Cont Abx Augmentin 875 mg po BID Stable on RA DC plans for home Avery Arauz MD Mar 02, 2017 19:07
[2017-03-02] MEDS ORDERED: DILTIAZEM HCL 25 MG/5 ML VIAL IV ONE (21:15)
[2017-03-02] MEDS: CYCLOBENZAPRINE HCL 10 MG TAB PO SCH (22:14)
[2017-03-03 02:00] VITALS: BP 104/61; PULSE 136
[2017-03-03] MEDS: DILTIAZEM-CD 180 MG CAP ER PO SCH (02:03)
[2017-03-03] MEDS ORDERED: DILTIAZEM-CD 180 MG CAP ER PO ONE (02:30)
[2017-03-03 03:00] VITALS: BP 106/67; PULSE 80; RESP 20; TEMP 98.6; O2SAT 94
[2017-03-03 08:00] VITALS: BP 112/60; PULSE 67; PULSE 69; RESP 12; TEMP 98.1; O2SAT 92
[2017-03-03] MEDS: AMOXICILLIN/CLAVULANATE K 875 MG TAB PO SCH ×2 (08:55→21:05)
[2017-03-03] MEDS: POTASSIUM CHLORIDE 20 MEQ CONTROLLED RELEASE TAB PO SCH ×4 (08:55→21:04)
[2017-03-03] MEDS: APIXABAN 5 MG TABLET PO SCH ×2 (08:55→21:05)
[2017-03-03] MEDS: SODIUM CHLORIDE 0.9% FLUSH 10 ML FLUSH IV FLUSH SCH ×2 (08:55→21:07)
[2017-03-03] MEDS: FUROSEMIDE 40 MG/4 ML VIAL IV PUSH SCH (08:56)
--- NOTE | 2017-03-03 09:08 | PD.PN.STU ---
Subjective Remarks Patient reports he is doing "much better than last night". He mentions that he had an episode of tachycardia last evening that has since resolved. He utilized supplemental O2 last evening during this episode. An EKG was performed this morning and showed sinus rhythm with first degree AV block. Use of muscle relaxer has helped control his right sided back pain. He is still experiencing a non-productive cough and occasional shortness of breath with exertion. He denies lightheadedness, headaches, chest pain, heart palpitations Addendum by Dr. Peña I personally seen and examined this patient Discussed with medical student Agree with above Diller is referred to my independent note for more details Objective Vitals Vital Signs Date Time Temp Pulse Resp B/P Pulse Ox O2 Delivery O2 Flow Rate FiO2 03/03/17 03:00 80 03/03/17 03:00 98.6 80 20 106/67 94 03/03/17 02:00 136 104/61 03/03/17 02:00 136 03/02/17 22:13 77 108/64 03/02/17 21:50 78 03/02/17 21:47 87 105/62 03/02/17 21:00 142 03/02/17 20:00 148 03/02/17 20:00 99.5 148 18 116/64 92 03/02/17 20:00 99.3 57 20 121/58 98 03/02/17 16:00 98.7 74 14 122/63 93 03/02/17 12:00 98.3 65 16 120/64 94 I/O 03/02/17 03/02/17 03/02/17 03/03/17 03/03/17 03/03/17 06:59 14:59 22:59 06:59 14:59 22:59 Intake Total 1200 ml 480 ml Output Total 3000 ml 1735 ml 800 ml Balance -3000 ml -535 ml -320 ml Intake Oral 1200 ml 480 ml Output Urine Total 3000 ml 1735 ml 800 ml # Bowel Movements 2 1 0 Result Diagram: 02/28/17 0725 03/02/17 1125 Objective Remarks General: Alert and cooperative. Appears fatigued. Oriented to person, place, and time. Does not appear to be in acute distress. HEENT: Normocephalic. No pharyngeal erythema. Cardiovascular: RRR, S1 S2 normal. No murmurs or rubs appreciated. Radial pulses 2+. Pulmonary: No noted use of accessory muscles. Decreased lung sounds over right lung base. A/P Assessment and Plan 1. Pneumonia: Culture still inconclusive. Continue to treat with antibiotics Zosyn and Zithromax. 2. Right sided back pain: treat with muscle relaxer or analgesia as necessary. 3. Shortness of breath/hypoxemia: Improving. Utilize supplemental O2 as necessary. 4. Pleural effusion: Stable according to 03/02 CXR. Observe and monitor for expansion. If increase in size consider thoracentesis . 5. Afib/tachycardia/AV block: Rate control with diltiazem. Continue to monitor for irregular rhythm. Consider Holter monitor. 6. Hyperglycemia: continue to monitor and address with oral glycemic agents as necessary 7. Elevated Troponin: Appears to have resolved. Continue to monitor. 8. Continue to monitor electrolytes and replace as necessary. 9. Continue DVT prophylaxis with Lovenox 10. With continued symptom improvement, begin discharge planning. Trudy Caceres Mar 03, 2017 09:08 Ankur Peña MD Mar 05, 2017 18:46
--- NOTE | 2017-03-03 09:47 | EKG ---
Date Performed: 03/03/2017 Time Performed: 07:53:59 PTAGE: 71 years EKG: Sinus rhythm WITH FIRST DEGREE AV BLOCK PATTERN CONSISTENT WITH PULMONARY DISEASE INCOMPLETE RIGHT BUNDLE BRANCH BLOCK LEFT ANTERIOR FASCICULAR BLOCK NONSPECIFIC T-WAVE ABNORMALITY ABNORMAL ECG Compared to the PREVIOUS TRACING Premature atrial contractions are no longer present. PREVIOUS TRACIN03/01/2017 10.07 DOCTOR: Benjamín Jones Interpretating Date/Time 03/03/2017 09:46:34
--- NOTE | 2017-03-03 11:04 | HHI.PR ---
Subjective Subjective Remarks some SOB with activity minimal cough no cp weak but improving no fever right post back pain improving with Flexeril afib with RVR last night seen by cardiology today friends at [facility], visiting, multiple questions about dc planning Review of Systems Constitutional Constitutional Remarks 12 point ros completed, negative except as noted above Vitals/Results Intake & Output 03/02/17 03/02/17 03/03/17 15:00 23:00 07:00 Intake Total 1200 ml 480 ml Output Total 1735 ml 800 ml Balance -535 ml -320 ml Intake Oral 1200 ml 480 ml Output Urine Total 1735 ml 800 ml # Bowel Movements 1 0 Vital Signs Vital Signs Date Time Temp Pulse Resp B/P Pulse Ox O2 Delivery O2 Flow Rate FiO2 03/03/17 08:00 98.1 67 12 112/60 92 03/03/17 03:00 80 03/03/17 03:00 98.6 80 20 106/67 94 03/03/17 02:00 136 104/61 03/03/17 02:00 136 03/02/17 22:13 77 108/64 03/02/17 21:50 78 03/02/17 21:47 87 105/62 03/02/17 21:00 142 03/02/17 20:00 148 03/02/17 20:00 99.5 148 18 116/64 92 03/02/17 20:00 99.3 57 20 121/58 98 03/02/17 16:00 98.7 74 14 122/63 93 03/02/17 12:00 98.3 65 16 120/64 94 CBC/BMP: 02/28/17 0725 03/02/17 1125 Lab Results Laboratory Tests Test 03/02/17 11:25 Sodium Level 138 MEQ/L Potassium Level 4.3 MEQ/L Chloride Level 104 MEQ/L Carbon Dioxide Level 25.9 MEQ/L Anion Gap 8 MEQ/L Blood Urea Nitrogen 13 MG/DL Creatinine 0.75 MG/DL Estimat Glomerular Filtration 103 ML/MIN Rate Random Glucose 93 MG/DL Calcium Level 9.1 MG/DL Magnesium Level 2.0 MG/DL Physical Exam General General Appearance: Well Developed, Well Nourished, No Acute Distress, Comfortable Eyes Eye Exam: Pupils Equal Ears & Nose Ears & Nose Exam: Nasal Mucosa [place] Neck Neck Exam: Neck Supple, Trachea Midline Pulmonary Resp Remarks diminished RLL Cardiology CV Exam: Regular Gastrointestinal/Abdomen GI Exam: Soft, Non-Tender, Bowel Sounds Present, Non-Distended Musculoskeletal MS Exam: Joints Intact Integumentary Skin Exam: Warm, Intact Extremeties Extremities Exam: No Edema, Pedal Pulses Palpable Neurologic Neuro Exam: Alert, Awake, Oriented, Speech Clear, Moving All Extremities, No Focal Deficits Psychiatric Psych Exam: Appropriate Responses VTE Prophylaxis VTE Remarks Eliquis Assessment/Plan Problem List: (1) Pleural effusion (2) Pneumonia (3) Lactic acidosis (4) Blood glucose elevated (5) Elevated troponin (6) Atrial fibrillation and flutter (7) Hypoxemia Assessment/Plan 71-year-old white male presented to the emergency room with complaint of right posterior back pain associated with shortness of breath, fever, cough. Consolidated right middle and right lower lobe, small to moderate right parapneumonic effusion -Continue with antibiotics, now on PO Follow blood cultures-negative so far -Legionella and Pneumococcal Ag negative -appreciate pulm input -repeat CXR improving Right post lateral pain -improving with Flexeril Hypoxemia-resolved History of asthma as a child -DuoNeb's when necessary for wheezing -Continue with supplemental oxygen -walk test done, doesn't need oxygen Elevated troponin -negative for ACS -card evaluated Afib/flutter with RVR -appreciate card input. -Echo done, EF 55% -afib episode last night, off Cardizem now. Started on Sotalol, stable, SR for now -continue Eliquis Elevated blood glucose-resolved Hemoglobin A1c 4.9 Eliquis for DVT prophylaxis Walk test done, no need for oxygen Hopefully dc tomorrow if HR stable D/W RN D/W Pt and family D/W Dr. Peña This patient was seen by myself and Dr. Peña, this note is written on his behalf Problem Qualifiers (1) Pneumonia: Debby Weldon Mar 03, 2017 11:04
[2017-03-03 11:06] VITALS: BP 101/75; PULSE 65; PULSE 79; RESP 16; TEMP 98.2; O2SAT 98
[2017-03-03] MEDS: SOTALOL HCL 80 MG TAB PO SCH ×2 (11:06→21:34)
--- NOTE | 2017-03-03 15:59 | PD.CARD.PN ---
Subjective Subjective Remarks No CP or SOB, feels better but still w episodes of AF w RVR Objective Medications Current Medications Medications (Trade) Dose Ordered Sig/Roseann Route Start Time Stop Time Status Last Admin (NS Flush) 2 ml UNSCH PRN IV FLUSH 02/25/17 17:30 (NS Flush) 2 ml BID IV FLUSH 02/25/17 21:00 03/03/17 08:55 (Tylenol) 650 mg Q4H PRN PO 02/25/17 17:30 02/28/17 20:56 (Narcan Inj) 0.4 mg UNSCH PRN IV 02/25/17 17:30 (Milk Of Magnisma Liq) 30 ml Q12H PRN PO 02/25/17 17:30 (KCl) 40 meq QID PO 02/28/17 18:00 03/03/17 13:37 (Eliquis) 5 mg BID PO 02/28/17 21:00 03/03/17 08:55 (Augmentin) 875 mg Q12HR PO 03/01/17 21:00 03/03/17 08:55 (Flexeril) 10 mg HS PO 03/02/17 21:00 03/02/17 22:14 (Betapace) 80 mg Q12HR PO 03/03/17 10:00 03/03/17 11:06 (Lasix) 20 mg BID@09,18 PO 03/03/17 18:00 Vital Signs / I&O Vital Signs Date Time Temp Pulse Resp B/P Pulse Ox O2 Delivery O2 Flow Rate FiO2 03/03/17 11:06 98.2 79 16 101/75 98 03/03/17 08:00 69 03/03/17 08:00 98.1 67 12 112/60 92 03/03/17 03:00 80 03/03/17 03:00 98.6 80 20 106/67 94 03/03/17 02:00 136 104/61 03/03/17 02:00 136 03/02/17 22:13 77 108/64 03/02/17 21:50 78 03/02/17 21:47 87 105/62 03/02/17 21:00 142 03/02/17 20:00 148 03/02/17 20:00 99.5 148 18 116/64 92 03/02/17 20:00 99.3 57 20 121/58 98 03/02/17 16:00 98.7 74 14 122/63 93 I/O 03/02/17 03/02/17 03/02/17 03/03/17 03/03/17 03/03/17 07:00 15:00 23:00 07:00 15:00 23:00 Intake Total 1200 ml 480 ml 1200 ml Output Total 3000 ml 1735 ml 800 ml 400 ml Balance -3000 ml -535 ml -320 ml 800 ml Intake Oral 1200 ml 480 ml 1200 ml Output Urine Total 3000 ml 1735 ml 800 ml 400 ml # Bowel Movements 2 1 0 Physical Exam GENERAL: In NAD SKIN: Warm and dry. HEAD: Normocephalic. EYES: No scleral icterus. No injection or drainage. NECK: Supple, trachea midline. No JVD or lymphadenopathy. CARDIOVASCULAR: Irregular, without murmurs, gallops, or rubs. RESPIRATORY: Breath sounds equal bilaterally. No accessory muscle use. GASTROINTESTINAL: Abdomen soft, non-tender, nondistended. MUSCULOSKELETAL: No cyanosis, or edema. Laboratory Laboratory Tests Test 02/28/17 03/01/17 03/02/17 07:25 08:13 11:25 White Blood Count 10.4 TH/MM3 Red Blood Count 4.51 MIL/MM3 Hemoglobin 15.4 GM/DL Hematocrit 43.7 % Mean Corpuscular Volume 96.8 FL Mean Corpuscular Hemoglobin 34.2 PG Mean Corpuscular Hemoglobin 35.3 % Concent Red Cell Distribution Width 13.5 % Platelet Count 209 TH/MM3 Mean Platelet Volume 8.4 FL Neutrophils (%) (Auto) 66.5 % Lymphocytes (%) (Auto) 23.2 % Monocytes (%) (Auto) 8.2 % Eosinophils (%) (Auto) 1.8 % Basophils (%) (Auto) 0.3 % Neutrophils # (Auto) 6.9 TH/MM3 Lymphocytes # (Auto) 2.4 TH/MM3 Monocytes # (Auto) 0.9 TH/MM3 Eosinophils # (Auto) 0.2 TH/MM3 Basophils # (Auto) 0.0 TH/MM3 CBC Comment DIFF FINAL Differential Comment Troponin I LESS THAN 0.02 NG/ML Thyroid Stimulating Hormone 2.920 uIU/ML 3rd Gen Sodium Level 138 MEQ/L Potassium Level 4.3 MEQ/L Chloride Level 104 MEQ/L Carbon Dioxide Level 25.9 MEQ/L Anion Gap 8 MEQ/L Blood Urea Nitrogen 13 MG/DL Creatinine 0.75 MG/DL Estimat Glomerular Filtration 103 ML/MIN Rate Random Glucose 93 MG/DL Calcium Level 9.1 MG/DL Magnesium Level 2.0 MG/DL Imaging Last Impressions Chest X-Ray 03/02/17 0000 Signed Impressions: Service Date/Time: Thursday, March 02, 2017 13:39 - CONCLUSION: 1. Right- sided pleural effusion and consolidation of the right middle lobe unchanged from prior of 02/27/17. Ilya Ricci MD CT Angiography 02/25/17 1257 Signed Impressions: Service Date/Time: Saturday, February 25, 2017 15:24 - CONCLUSION: 1. No evidence of PE. 2. Consolidated right middle and right lower lobes 3. Small to moderate right parapneumonic effusion Chano Lopez MD Assessment and Plan Problem List: (1) Atrial fibrillation and flutter (2) Elevated troponin (3) Pneumonia (4) Hypoxemia Assessment and Plan Still w episodes of AF w RVR. Start antiarrhythmic tx w sotalol. Monitor EKGs/ QTc for 48 hrs. Anticoagulation with Eliquis. Continue tx for pneumonia. Increase activity. I will schedule him to see me in the office for cardiology followup after discharge. Problem Qualifiers (1) Pneumonia: Cornelius Haynes MD Mar 03, 2017 15:59
[2017-03-03 16:00] VITALS: BP 113/67; PULSE 61; RESP 14; TEMP 99.2; O2SAT 93
[2017-03-03] MEDS: FUROSEMIDE 20 MG TAB PO SCH (17:29)
--- NOTE | 2017-03-03 19:27 | HHI.PR ---
Subjective Remarks 71 YOWM with Pneumonia, Pl effusion, rt sided CP Breathing better Increased Troponin Legionella and Pneumococcal Ag negative no fever CXR stable infilt and effusion. Ambulates in hallway with PT Objective Vital Signs Vital Signs Date Time Temp Pulse Resp B/P Pulse Ox O2 Delivery O2 Flow Rate FiO2 03/03/17 16:00 99.2 61 14 113/67 93 03/03/17 11:06 98.2 79 16 101/75 98 03/03/17 08:00 69 03/03/17 08:00 98.1 67 12 112/60 92 03/03/17 03:00 80 03/03/17 03:00 98.6 80 20 106/67 94 03/03/17 02:00 136 104/61 03/03/17 02:00 136 03/02/17 22:13 77 108/64 03/02/17 21:50 78 03/02/17 21:47 87 105/62 03/02/17 21:00 142 03/02/17 20:00 148 03/02/17 20:00 99.5 148 18 116/64 92 03/02/17 20:00 99.3 57 20 121/58 98 I/O 03/02/17 03/02/17 03/02/17 03/03/17 03/03/17 03/03/17 07:00 15:00 23:00 07:00 15:00 23:00 Intake Total 1200 ml 480 ml 1200 ml Output Total 3000 ml 1735 ml 800 ml 400 ml Balance -3000 ml -535 ml -320 ml 800 ml Intake Oral 1200 ml 480 ml 1200 ml Output Urine Total 3000 ml 1735 ml 800 ml 400 ml # Bowel Movements 2 1 0 Result Diagram: 02/28/17 0725 03/02/17 1125 Objective Remarks GENERAL: WBWN Wm, NAD SKIN: Warm and dry. HEAD: Normocephalic. EYES: No scleral icterus. No injection or drainage. NECK: Supple, trachea midline. No JVD or lymphadenopathy. CARDIOVASCULAR: Regular rate and rhythm without murmurs, gallops, or rubs. RESPIRATORY: Breath sounds equal bilaterally. No accessory muscle use. Bronchial BS right lung base GASTROINTESTINAL: Abdomen soft, non-tender, nondistended. MUSCULOSKELETAL: No cyanosis, or edema. BACK: Nontender without obvious deformity. No CVA tenderness. A/P Assessment and Plan Pneumonia, Likly CAP Right Chest pain Pleural effusion, small Increased troponin PLAN: Cont Abx Augmentin 875 mg po BID Stable on RA DC plans for home Will FU in office Avery Arauz MD Mar 03, 2017 19:27
[2017-03-03 20:00] VITALS: BP 115/55; PULSE 59; PULSE 61; RESP 20; TEMP 99; O2SAT 93
[2017-03-03] MEDS: CYCLOBENZAPRINE HCL 10 MG TAB PO SCH (21:04)
[2017-03-04] VITALS (8 sets, daily range): BP systolic 91–120; BP diastolic 52–67; PULSE 52–62; RESP 16–20; TEMP 98.6–99; O2SAT 92–93
--- NOTE | 2017-03-04 08:45 | PD.CARD.PN ---
Subjective Subjective Remarks No angina or excessive SOB, tele w mild SB Objective Medications Current Medications Medications (Trade) Dose Ordered Sig/Roseann Route Start Time Stop Time Status Last Admin (NS Flush) 2 ml UNSCH PRN IV FLUSH 02/25/17 17:30 (NS Flush) 2 ml BID IV FLUSH 02/25/17 21:00 03/03/17 21:07 (Tylenol) 650 mg Q4H PRN PO 02/25/17 17:30 02/28/17 20:56 (Narcan Inj) 0.4 mg UNSCH PRN IV 02/25/17 17:30 (Milk Of Magnesia Liq) 30 ml Q12H PRN PO 02/25/17 17:30 (KCl) 40 meq QID PO 02/28/17 18:00 03/03/17 21:04 (Eliquis) 5 mg BID PO 02/28/17 21:00 03/03/17 21:05 (Augmentin) 875 mg Q12HR PO 03/01/17 21:00 03/03/17 21:05 (Flexeril) 10 mg HS PO 03/02/17 21:00 03/03/17 21:04 (Betapace) 80 mg Q12HR PO 03/03/17 10:00 03/03/17 21:34 (Lasix) 20 mg BID@09,18 PO 03/03/17 18:00 03/03/17 17:29 Vital Signs / I&O Vital Signs Date Time Temp Pulse Resp B/P Pulse Ox O2 Delivery O2 Flow Rate FiO2 03/04/17 04:00 99.0 53 20 116/63 93 03/04/17 00:57 98/60 03/04/17 00:00 98.8 52 20 91/52 92 03/03/17 20:00 61 03/03/17 20:00 99.0 59 20 115/55 93 03/03/17 16:00 99.2 61 14 113/67 93 03/03/17 11:06 98.2 79 16 101/75 98 I/O 03/03/17 03/03/17 03/03/17 03/04/17 03/04/17 03/04/17 07:00 15:00 23:00 07:00 15:00 23:00 Intake Total 480 ml 1200 ml 220 ml Output Total 800 ml 400 ml 500 ml Balance -320 ml 800 ml -280 ml Intake Oral 480 ml 1200 ml 220 ml Output Urine Total 800 ml 400 ml 500 ml # Bowel Movements 0 0 Physical Exam GENERAL: In NAD SKIN: Warm and dry. HEAD: Normocephalic. EYES: No scleral icterus. No injection or drainage. NECK: Supple, trachea midline. No JVD or lymphadenopathy. CARDIOVASCULAR: Regular, without murmurs, gallops, or rubs. RESPIRATORY: Breath sounds equal bilaterally. No accessory muscle use. GASTROINTESTINAL: Abdomen soft, non-tender, nondistended. MUSCULOSKELETAL: No cyanosis, or edema. Laboratory Laboratory Tests Test 02/28/17 03/01/17 03/02/17 07:25 08:13 11:25 White Blood Count 10.4 TH/MM3 Red Blood Count 4.51 MIL/MM3 Hemoglobin 15.4 GM/DL Hematocrit 43.7 % Mean Corpuscular Volume 96.8 FL Mean Corpuscular Hemoglobin 34.2 PG Mean Corpuscular Hemoglobin 35.3 % Concent Red Cell Distribution Width 13.5 % Platelet Count 209 TH/MM3 Mean Platelet Volume 8.4 FL Neutrophils (%) (Auto) 66.5 % Lymphocytes (%) (Auto) 23.2 % Monocytes (%) (Auto) 8.2 % Eosinophils (%) (Auto) 1.8 % Basophils (%) (Auto) 0.3 % Neutrophils # (Auto) 6.9 TH/MM3 Lymphocytes # (Auto) 2.4 TH/MM3 Monocytes # (Auto) 0.9 TH/MM3 Eosinophils # (Auto) 0.2 TH/MM3 Basophils # (Auto) 0.0 TH/MM3 CBC Comment DIFF FINAL Differential Comment Troponin I LESS THAN 0.02 NG/ML Thyroid Stimulating Hormone 2.920 uIU/ML 3rd Gen Sodium Level 138 MEQ/L Potassium Level 4.3 MEQ/L Chloride Level 104 MEQ/L Carbon Dioxide Level 25.9 MEQ/L Anion Gap 8 MEQ/L Blood Urea Nitrogen 13 MG/DL Creatinine 0.75 MG/DL Estimat Glomerular Filtration 103 ML/MIN Rate Random Glucose 93 MG/DL Calcium Level 9.1 MG/DL Magnesium Level 2.0 MG/DL Imaging Last Impressions Chest X-Ray 03/02/17 0000 Signed Impressions: Service Date/Time: Thursday, March 02, 2017 13:39 - CONCLUSION: 1. Right- sided pleural effusion and consolidation of the right middle lobe unchanged from prior of 02/27/17. Ilya Ricci MD CT Angiography 02/25/17 1257 Signed Impressions: Service Date/Time: Saturday, February 25, 2017 15:24 - CONCLUSION: 1. No evidence of PE. 2. Consolidated right middle and right lower lobes 3. Small to moderate right parapneumonic effusion Chano Lopez MD Assessment and Plan Problem List: (1) Atrial fibrillation and flutter (2) Elevated troponin (3) Pneumonia (4) Hypoxemia Assessment and Plan Stays in SB on sotalol, no recurrent AF. Monitor EKGs/QTc. Anticoagulation with Eliquis. Continue tx for pneumonia. Increase activity. I will schedule him to see me in the office for cardiology followup after discharge. Problem Qualifiers (1) Pneumonia: Cornelius Haynes MD Mar 04, 2017 08:45
--- NOTE | 2017-03-04 09:14 | HHI.FF ---
Face to Face Verification Diagnosis: (1) Pleural effusion (2) Pneumonia (3) Lactic acidosis (4) Blood glucose elevated (5) Elevated troponin (6) Atrial fibrillation and flutter (7) Hypoxemia Physical Therapy Order: Evaluate and Treat Home Health Nursing Order: Medical education Signs/symptoms of disease process Medication education-adverse effect Nursing assessment with vital signs I have seen patient Benjamín Pina on 03/04/17. My clinical findings support the need for the requested home health care services because: Patient has SOB Deconditioned w/ increased weakness Need for psychosocial assistance I certify that my clinical findings support that this patient is homebound because: Need for psychosocial assistance Debby WeldonP Mar 04, 2017 09:14
[2017-03-04] MEDS: POTASSIUM CHLORIDE 20 MEQ CONTROLLED RELEASE TAB PO SCH ×4 (09:16→20:19)
[2017-03-04] MEDS: SOTALOL HCL 80 MG TAB PO SCH ×2 (09:16→20:20)
[2017-03-04] MEDS: FUROSEMIDE 20 MG TAB PO SCH ×2 (09:16→17:09)
[2017-03-04] MEDS: APIXABAN 5 MG TABLET PO SCH ×2 (09:16→20:19)
[2017-03-04] MEDS: AMOXICILLIN/CLAVULANATE K 875 MG TAB PO SCH ×2 (09:16→20:20)
[2017-03-04] MEDS ORDERED: FURO20TA PO ×2 (09:17→10:12)
[2017-03-04] MEDS ORDERED: AMOX875T2 PO (09:17)
[2017-03-04] MEDS ORDERED: APIX5TAB PO (09:17)
[2017-03-04] MEDS ORDERED: SOTA80 PO (09:17)
[2017-03-04] MEDS ORDERED: CYCL1TAB29 PO (09:17)
[2017-03-04] MEDS: SODIUM CHLORIDE 0.9% FLUSH 10 ML FLUSH IV FLUSH SCH ×2 (09:18→20:19)
--- NOTE | 2017-03-04 09:18 | HHI.DCPOC ---
Discharge Care Plan Diagnosis: (1) Pleural effusion (2) Pneumonia (3) Lactic acidosis (4) Blood glucose elevated (5) Elevated troponin (6) Atrial fibrillation and flutter (7) Hypoxemia Your Health Problems Are: Chest Pain Cough Shortness of Breath Goals to Promote Your Health * To prevent worsening of your condition and complications * To maintain your health at the optimal level Directions to Meet Your Goals Take your medications as prescribed Follow your dietary instruction Follow activity as directed Keep your appointments as scheduled Take your immunizations and boosters as scheduled If your symptoms worsen call your PCP, if no PCP go to Urgent Care Center or Emergency Room Smoking is Dangerous to Your Health. Avoid second hand smoke Call the 24-hour hour crisis hotline for domestic abuse at Debby Weldon Mar 04, 2017 09:18
[2017-03-04] MEDS ORDERED: POTA20TA5 PO ×2 (09:19→10:12)
--- NOTE | 2017-03-04 11:49 | HHI.PR ---
Subjective Subjective Remarks minimal SOB with activity minimal cough no cp no fever right post back pain improving with Flexeril SB on monitor tired today Review of Systems Constitutional Constitutional Remarks 12 point ros completed, negative except as noted above Vitals/Results Intake & Output 03/03/17 03/03/17 03/04/17 15:00 23:00 07:00 Intake Total 1200 ml 220 ml Output Total 400 ml 500 ml Balance 800 ml -280 ml Intake Oral 1200 ml 220 ml Output Urine Total 400 ml 500 ml # Bowel Movements 0 Vital Signs Vital Signs Date Time Temp Pulse Resp B/P Pulse Ox O2 Delivery O2 Flow Rate FiO2 03/04/17 08:00 99.0 60 16 120/58 93 03/04/17 04:00 99.0 53 20 116/63 93 03/04/17 00:57 98/60 03/04/17 00:00 98.8 52 20 91/52 92 03/03/17 20:00 61 03/03/17 20:00 99.0 59 20 115/55 93 03/03/17 16:00 99.2 61 14 113/67 93 CBC/BMP: 02/28/17 0725 03/02/17 1125 Physical Exam General General Appearance: Well Developed, Well Nourished, No Acute Distress, Comfortable Eyes Eye Exam: Pupils Equal Ears & Nose Ears & Nose Exam: Nasal Mucosa [place] Neck Neck Exam: Neck Supple, Trachea Midline Pulmonary Resp Remarks diminished RLL Cardiology CV Exam: Regular Gastrointestinal/Abdomen GI Exam: Soft, Non-Tender, Bowel Sounds Present, Non-Distended Musculoskeletal MS Exam: Joints Intact Integumentary Skin Exam: Warm, Intact Extremeties Extremities Exam: No Edema, Pedal Pulses Palpable Neurologic Neuro Exam: Alert, Awake, Oriented, Speech Clear, Moving All Extremities, No Focal Deficits Psychiatric Psych Exam: Appropriate Responses VTE Prophylaxis VTE Remarks Eliquis Assessment/Plan Problem List: (1) Pleural effusion (2) Pneumonia (3) Lactic acidosis (4) Blood glucose elevated (5) Elevated troponin (6) Atrial fibrillation and flutter (7) Hypoxemia Assessment/Plan 71-year-old white male presented to the emergency room with complaint of right posterior back pain associated with shortness of breath, fever, cough. Consolidated right middle and right lower lobe, small to moderate right parapneumonic effusion -Continue with antibiotics, now on PO Follow blood cultures-negative so far -Legionella and Pneumococcal Ag negative -appreciate pulm input -repeat CXR improving Right post lateral pain -improving with Flexeril Hypoxemia-resolved History of asthma as a child -DuoNeb's when necessary for wheezing -Continue with supplemental oxygen -walk test done, doesn't need oxygen Elevated troponin -negative for ACS -card evaluated Afib/flutter with RVR, resolving, no episodes last night. Off Cardizem now -appreciate card input. -Echo done, EF 55% -continue Eliquis -started on Sotalol, now with mild bradycardia. Per card, wants to monitor EKG today and tomorrow for QT interval. Elevated blood glucose-resolved Hemoglobin A1c 4.9 Eliquis for DVT prophylaxis Walk test done, no need for oxygen CM consult for HHC, nursing, PT Will keep one more day to monitor EKG hopefully dc tomorrow D/W RN D/W Pt D/W Dr. Peña This patient was seen by myself and Dr. Peña, this note is written on his behalf Problem Qualifiers (1) Pneumonia: Debby WeldonP Mar 04, 2017 11:49
--- NOTE | 2017-03-04 14:50 | EKG ---
Date Performed: 03/04/2017 Time Performed: 07:10:23 PTAGE: 71 years EKG: SINUS BRADYCARDIA WITH FIRST DEGREE AV BLOCK PATTERN CONSISTENT WITH PULMONARY DISEASE LEFT ANTERIOR FASCICULAR BLOCK NONSPECIFIC T-WAVE ABNORMALITY ABNORMAL ECG PREVIOUS TRACING : 03/03/2017 07.53 Compared to prior tracing no significant change DOCTOR: Bryan Chávez Interpretating Date/Time 03/04/2017 14:49:38
--- NOTE | 2017-03-04 18:15 | HHI.PR ---
Subjective Remarks 71 YOWM with Pneumonia, Pl effusion, rt sided CP Increased Troponin Legionella and Pneumococcal Ag negative CXR stable infilt and effusion. Ambulates in hallway with PT Objective Vital Signs Vital Signs Date Time Temp Pulse Resp B/P Pulse Ox O2 Delivery O2 Flow Rate FiO2 03/04/17 16:00 98.7 60 16 113/61 92 03/04/17 12:00 98.6 60 16 106/67 92 03/04/17 08:05 55 03/04/17 08:00 99.0 60 16 120/58 93 03/04/17 04:00 99.0 53 20 116/63 93 03/04/17 00:57 98/60 03/04/17 00:00 98.8 52 20 91/52 92 03/03/17 20:00 61 03/03/17 20:00 99.0 59 20 115/55 93 I/O 03/03/17 03/03/17 03/03/17 03/04/17 03/04/17 03/04/17 07:00 15:00 23:00 07:00 15:00 23:00 Intake Total 480 ml 1200 ml 220 ml 600 ml 646 ml Output Total 800 ml 400 ml 500 ml 550 ml Balance -320 ml 800 ml -280 ml 50 ml 646 ml Intake Oral 480 ml 1200 ml 220 ml 600 ml IV Total 646 ml Output Urine Total 800 ml 400 ml 500 ml 550 ml # Bowel Movements 0 0 Result Diagram: 02/28/17 0725 03/02/17 1125 Objective Remarks GENERAL: WBWN Wm, NAD SKIN: Warm and dry. HEAD: Normocephalic. EYES: No scleral icterus. No injection or drainage. NECK: Supple, trachea midline. No JVD or lymphadenopathy. CARDIOVASCULAR: Regular rate and rhythm without murmurs, gallops, or rubs. RESPIRATORY: Breath sounds equal bilaterally. No accessory muscle use. Bronchial BS right lung base GASTROINTESTINAL: Abdomen soft, non-tender, nondistended. MUSCULOSKELETAL: No cyanosis, or edema. BACK: Nontender without obvious deformity. No CVA tenderness. A/P Assessment and Plan Pneumonia, Likly CAP Right Chest pain Pleural effusion, small Increased troponin PLAN: Cont Abx Augmentin 875 mg po BID Stable on RA DC plans for home EKG monitoring for Qt interval. Avery Arauz MD Mar 04, 2017 18:14
[2017-03-04] MEDS: CYCLOBENZAPRINE HCL 10 MG TAB PO SCH (20:20)
[2017-03-05] VITALS: BP 128/66; PULSE 51; RESP 22; TEMP 98.2; O2SAT 94
[2017-03-05 01:20] VITALS: BP 113/59; PULSE 60; RESP 20; O2SAT 93
[2017-03-05 04:00] VITALS: BP 104/65; PULSE 57; RESP 20; TEMP 98.5; O2SAT 92
[2017-03-05 08:00] VITALS: BP 110/68; PULSE 59; RESP 15; TEMP 98.6; O2SAT 93
--- NOTE | 2017-03-05 08:55 | EKG ---
Date Performed: 03/05/2017 Time Performed: 06:27:34 PTAGE: 71 years EKG: Possible ectopic atrial bradycardia with PAC(s) Prolonged QT interval Left anterior fascicu lar block Inferior infarct - age undetermined Abnormal ECG PREVIOUS TRACING : 03/04/2017 07.10 Compared to prior tracing no significant change DOCTOR: Eliseo Hirsch Interpretating Date/Time 03/05/2017 08:52:11
[2017-03-05] MEDS: APIXABAN 5 MG TABLET PO SCH (09:07)
[2017-03-05] MEDS: SOTALOL HCL 80 MG TAB PO SCH (09:07)
[2017-03-05] MEDS: AMOXICILLIN/CLAVULANATE K 875 MG TAB PO SCH (09:07)
[2017-03-05] MEDS: SODIUM CHLORIDE 0.9% FLUSH 10 ML FLUSH IV FLUSH SCH (09:07)
[2017-03-05] MEDS: POTASSIUM CHLORIDE 20 MEQ CONTROLLED RELEASE TAB PO SCH ×2 (09:07→12:04)
[2017-03-05] MEDS: FUROSEMIDE 20 MG TAB PO SCH (09:07)
--- NOTE | 2017-03-05 09:15 | PD.CARD.PN ---
Subjective Subjective Remarks No CP or SOB, stays in SR on sotalol Objective Medications Current Medications Medications (Trade) Dose Ordered Sig/Roseann Route Start Time Stop Time Status Last Admin (NS Flush) 2 ml UNSCH PRN IV FLUSH 02/25/17 17:30 (NS Flush) 2 ml BID IV FLUSH 02/25/17 21:00 03/05/17 09:07 (Tylenol) 650 mg Q4H PRN PO 02/25/17 17:30 02/28/17 20:56 (Narcan Inj) 0.4 mg UNSCH PRN IV 02/25/17 17:30 (Milk Of Magnesia Liq) 30 ml Q12H PRN PO 02/25/17 17:30 (KCl) 40 meq QID PO 02/28/17 18:00 03/05/17 09:07 (Eliquis) 5 mg BID PO 02/28/17 21:00 03/05/17 09:07 (Augmentin) 875 mg Q12HR PO 03/01/17 21:00 03/05/17 09:07 (Flexeril) 10 mg HS PO 03/02/17 21:00 03/04/17 20:20 (Betapace) 80 mg Q12HR PO 03/03/17 10:00 03/05/17 09:07 (Lasix) 20 mg BID@,18 PO 03/03/17 18:00 03/05/17 09:07 Vital Signs / I&O Vital Signs Date Time Temp Pulse Resp B/P Pulse Ox O2 Delivery O2 Flow Rate FiO2 03/05/17 04:00 98.5 57 20 104/65 92 03/05/17 01:20 20 113/59 93 03/05/17 01:20 60 03/05/17 00:00 98.2 51 22 128/66 94 03/04/17 20:00 98.8 62 20 113/59 93 03/04/17 20:00 57 03/04/17 16:00 98.7 60 16 113/61 92 03/04/17 12:00 98.6 60 16 106/67 92 I/O 03/04/17 03/04/17 03/04/17 03/05/17 03/05/17 03/05/17 06:59 14:59 22:59 06:59 14:59 22:59 Intake Total 220 ml 600 ml 646 ml 220 ml Output Total 500 ml 550 ml 550 ml 1000 ml Balance -280 ml 50 ml 96 ml -780 ml Intake Oral 220 ml 600 ml 220 ml IV Total 646 ml Output Urine Total 500 ml 550 ml 550 ml 1000 ml # Bowel Movements 0 0 Physical Exam GENERAL: In NAD SKIN: Warm and dry. HEAD: Normocephalic. EYES: No scleral icterus. No injection or drainage. NECK: Supple, trachea midline. No JVD or lymphadenopathy. CARDIOVASCULAR: Regular, without murmurs, gallops, or rubs. RESPIRATORY: Breath sounds equal bilaterally. No accessory muscle use. GASTROINTESTINAL: Abdomen soft, non-tender, nondistended. MUSCULOSKELETAL: No cyanosis, or edema. Laboratory Laboratory Tests Test 03/01/17 03/02/17 08:13 11:25 Troponin I LESS THAN 0.02 NG/ML Thyroid Stimulating Hormone 2.920 uIU/ML 3rd Gen Sodium Level 138 MEQ/L Potassium Level 4.3 MEQ/L Chloride Level 104 MEQ/L Carbon Dioxide Level 25.9 MEQ/L Anion Gap 8 MEQ/L Blood Urea Nitrogen 13 MG/DL Creatinine 0.75 MG/DL Estimat Glomerular Filtration 103 ML/MIN Rate Random Glucose 93 MG/DL Calcium Level 9.1 MG/DL Magnesium Level 2.0 MG/DL Imaging Last Impressions Chest X-Ray 03/02/17 0000 Signed Impressions: Service Date/Time: Thursday, March 02, 2017 13:39 - CONCLUSION: 1. Right- sided pleural effusion and consolidation of the right middle lobe unchanged from prior of 02/27/17. Ilya Ricci MD CT Angiography 02/25/17 1257 Signed Impressions: Service Date/Time: Saturday, February 25, 2017 15:24 - CONCLUSION: 1. No evidence of PE. 2. Consolidated right middle and right lower lobes 3. Small to moderate right parapneumonic effusion Chano Lopez MD Assessment and Plan Problem List: (1) Atrial fibrillation and flutter (2) Elevated troponin (3) Pneumonia (4) Hypoxemia Assessment and Plan Stays in SR on sotalol, no recurrent AF. QTc normal. Continue anticoagulation with Eliquis. Continue tx for pneumonia. Increase activity. I will schedule him to see me in the office for cardiology followup after discharge. OK to discharge home from cardiac standpoint. Problem Qualifiers (1) Pneumonia: Cornelius Haynes MD Mar 05, 2017 09:15
--- NOTE | 2017-03-05 09:20 | PD.PN.STU ---
Subjective Remarks Patient reports he is doing "pretty good" today, though he is very tired. He mentions that he did not sleep well last night. He is receiving PT and is experiencing some shortness of breath with exertion. His cough is rare and non- productive. His pain is controlled with Flexeril. He is curious as to when he will be able to go home, and he is interested in getting a walker before he leaves. He denies headaches, lightheadedness, and heart palpitations. Objective Vitals Vital Signs Date Time Temp Pulse Resp B/P Pulse Ox O2 Delivery O2 Flow Rate FiO2 03/05/17 04:00 98.5 57 20 104/65 92 03/05/17 01:20 20 113/59 93 03/05/17 01:20 60 03/05/17 00:00 98.2 51 22 128/66 94 03/04/17 20:00 98.8 62 20 113/59 93 03/04/17 20:00 57 03/04/17 16:00 98.7 60 16 113/61 92 03/04/17 12:00 98.6 60 16 106/67 92 I/O 03/04/17 03/04/17 03/04/17 03/05/17 03/05/17 03/05/17 06:59 14:59 22:59 06:59 14:59 22:59 Intake Total 220 ml 600 ml 646 ml 220 ml Output Total 500 ml 550 ml 550 ml 1000 ml Balance -280 ml 50 ml 96 ml -780 ml Intake Oral 220 ml 600 ml 220 ml IV Total 646 ml Output Urine Total 500 ml 550 ml 550 ml 1000 ml # Bowel Movements 0 0 Result Diagram: 03/02/17 1125 Objective Remarks General: Alert and cooperative. Appears fatigued. Oriented to person, place, and time. Does not appear to be in acute distress. HEENT: Normocephalic. No pharyngeal erythema. Cardiovascular: RRR, S1 S2 normal. No murmurs or rubs appreciated. Radial pulses 2+. Pulmonary: No noted use of accessory muscles. Decreased lung sounds over right lung base. A/P Assessment and Plan 1. Pneumonia: Culture still inconclusive. Antibiotics now po Augmentin. 2. Right sided back pain: controlled with Flexeril. 3. Shortness of breath/hypoxemia: Improving. Utilize supplemental O2 as necessary. 4. Pleural effusion: Stable according to 03/02 CXR. Observe and monitor for expansion. If increase in size consider thoracentesis . 5. Afib/tachycardia/AV block: Rate control with sotalol. Continue to monitor for irregular rhythm. Consider Holter monitor. 6. Hyperglycemia: continue to monitor and address with oral glycemic agents as necessary 7. Elevated Troponin: Appears to have resolved. Continue to monitor. 8. Continue to monitor electrolytes and replace as necessary. 9. Continue DVT prophylaxis with Lovenox 10. With continued symptom improvement, begin discharge planning. Addendum by Dr. Peña I personally seen and examined this patient Discussed with medical student Agree with above Thoreau is referred to my independent note for more details Trudy Caceres Mar 05, 2017 09:20 Ankur Peña MD Mar 05, 2017 18:47
[2017-03-05 12:00] VITALS: BP 115/71; PULSE 58; RESP 15; TEMP 98.5; O2SAT 94
--- NOTE | 2017-03-05 12:35 | HHI.PR ---
Subjective Subjective Remarks Sitting up in chair Alert oriented No Shortness of breath noted Sinus Bradycardia, heart rate 57 (Deysi Miranda) Review of Systems Constitutional Constitutional: Fatigue (easily, improved with some of his ambulation in the hospital) (Deysi Miranda) Musculoskeletal MS: Weakness (improved) (Deysi Miranda) Psychiatric Psychiatric: Normal Mood (Deysi Miranda) Vitals/Results Intake & Output 03/04/17 03/04/17 03/05/17 15:00 23:00 07:00 Intake Total 600 ml 646 ml 220 ml Output Total 550 ml 550 ml 1000 ml Balance 50 ml 96 ml -780 ml Intake Oral 600 ml 220 ml IV Total 646 ml Output Urine Total 550 ml 550 ml 1000 ml # Bowel Movements 0 Vital Signs Vital Signs Date Time Temp Pulse Resp B/P Pulse Ox O2 Delivery O2 Flow Rate FiO2 03/05/17 08:00 98.6 59 15 110/68 93 03/05/17 04:00 98.5 57 20 104/65 92 03/05/17 01:20 20 113/59 93 03/05/17 01:20 60 03/05/17 00:00 98.2 51 22 128/66 94 03/04/17 20:00 98.8 62 20 113/59 93 03/04/17 20:00 57 03/04/17 16:00 98.7 60 16 113/61 92 (Deysi Miranda) CBC/BMP: 03/02/17 1125 Imaging Remarks Last Impressions Chest X-Ray 03/02/17 0000 Signed Impressions: Service Date/Time: Thursday, March 02, 2017 13:39 - CONCLUSION: 1. Right- sided pleural effusion and consolidation of the right middle lobe unchanged from prior of 02/27/17. Ilya Ricci MD CT Angiography 02/25/17 1257 Signed Impressions: Service Date/Time: Saturday, February 25, 2017 15:24 - CONCLUSION: 1. No evidence of PE. 2. Consolidated right middle and right lower lobes 3. 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 [employer] SALES SUPERVISOR) Ears & Nose Ears & Nose Exam: Nasal Mucosa Lane (Keli Mirandaan M. [employer]ATIONS SALES SUPERVISOR) Neck Neck Exam: Neck Supple, Trachea Midline (RuthKeli hawkinsan M. [employer]ATIONS SALES SUPERVISOR) Cardiology CV Exam: Regular, Bradycardia CV Remarks Sinus bradycardia ([place],Deysi M. [employer]ATIONS SALES SUPERVISOR) Gastrointestinal/Abdomen GI Exam: Soft, Non-Tender, Bowel Sounds Present, Non-Distended ([place]eliDe[place]i M. [employer]ATIONS SALES SUPERVISOR) Musculoskeletal MS Exam: Joints Intact (RuthKeliDeysi M. [employer]ATIONS SALES SUPERVISOR) Integumentary Skin Exam: Warm, Intact (RuthKeliDeysi M. [employer]ATIONS SALES SUPERVISOR) Extremeties Extremities Exam: No Edema, Pedal Pulses Palpable ([place],Deysi M. [employer]ATIONS SALES SUPERVISOR) Neurologic Neuro Exam: Alert, Awake, Oriented, Speech Clear, Moving All Extremities, No Focal Deficits (Keli Mirandaan M. [employer]ATIONS SALES SUPERVISOR) Psychiatric Psych Exam: Appropriate Responses (RuthDeysi M. [employer] SALES SUPERVISOR) Assessment/Plan Problem List: (1) Pleural effusion (2) Pneumonia (3) Lactic acidosis (4) Blood glucose elevated (5) Elevated troponin (6) Atrial fibrillation and flutter (7) Hypoxemia Assessment/Plan Vital signs reviewed, afebrile, heart rate 57 sinus bradycardia noted on telemetry Labs reviewed, urine culture shows no growth Consolidated right middle and right lower lobe, small to moderate right parapneumonic effusion antibiotics, now on PO , blood cultures-negative Legionella and Pneumococcal Ag negative appreciate pulm input, right flank pain much improved with Flexeril, probable multiple muscle skeletal in nature Hypoxemia-resolved History of asthma as a child O2 duo nebs, walk test negative, encourage patient not to use oxygen unless absolutely necessary DC planning in process Afib/flutter with RVR, resolved, controlled on by mouth sotalol -appreciate card input. And plan a care, rate bradycardic in the mid to high 50s, patient is asymptomatic for any chest pain dizziness EKG to monitor QT interval QT interval Eliquis for DVT prophylaxis Walk test done, no need for oxygen CM consult for HHC, nursing, PT, possible today, okay with cardiology and pulmonology okay in his note on 81 6 D/W RN D/W Pt and he is living in traffic safety administrator, friend D/W Dr. Peña, seen on his behalf (Deysi Miranda) Assessment/Plan seen, examined by myself, Dr Peña, today Discussed with patient Discharge home today on Augmentin also on sotalol and Eliquis, follow-up with cardiology Discussed with mid level provider The exam, history, and the medical decision-making described in the above note were completed with the assistance of the mid-level provider. I reviewed the findings presented. I attest that I had a [id number] encounter with the patient on the same day, and personally performed and documented my assessment and findings in the medical record. 40 minutes (Ankur Peña MD) Problem Qualifiers (1) Pneumonia: Deysi Miranda Mar 05, 2017 12:35 Ankur Peña MD Mar 05, 2017 18:48
--- NOTE | 2017-03-05 17:55 | HHI.DS ---
Discharge Summary Admission Date Feb 25, 2017 at 17:12 Discharge Date: Mar 05, 2017 Admitting Diagnosis pleural effusion/possible pneumonia (1) Hypoxemia Diagnosis: Principal (2) Pleural effusion Diagnosis: Principal (3) Pneumonia Diagnosis: Principal (4) Lactic acidosis Diagnosis: Principal (5) Blood glucose elevated Diagnosis: Secondary (6) Elevated troponin Diagnosis: Principal Brief History This was a pleasant 71-year-old white male with no significant medical history other than asthma as a child. Patient presented to the emergency room with right posterior back pain that has been worsening over the last 7 days. Indicated that the pain was located to the right posterior rib cage, there is no radiation, it was stabbing. His roommate had noted increased shortness of breath, and a fever a few days ago that was 101.2. There was no leg swelling, no actual chest discomfort. He had a dry cough, small amount of sputum, worst in the morning and after taking naps. He had also been applying Vicks vapor rub , without any relief. He denied any recent injury, no falls. Patient indicated he has not seen a primary care physician in more than 2 years. He had a slip and fall 7 years ago and has chronic left-sided back pain for which he takes natural supplements. Patient presented to the emergency room, vital signs were completed. Temperature was 98.7, pulse rate was 104, respiratory rate 28, blood pressure 114/78. Sats were 91% on room air. CBC was remarkable for thrombocytopenia, platelet 142. BMP remarkable for random glucose of 140, lactic acid 2.9. Total bilirubin 1.3. AST 65. Total creatinine kinase 434. The natruretic peptide 158. Troponin 0.06. Imaging studies were completed. CTA was negative for PE but it showed consolidated right middle and right lower lobes, small to moderate right parapneumonic effusion. Chest x-ray showed dense opacification of the right lung base characteristic of a pleural effusion with underlying lobe consolidation and or mass. Patient was put on oxygen. Cultures were obtained and empiric antibiotics were started. Endorses prior history of smoking, quit in the 1980s, he did smoke 15 years half a pack a day. CBC/BMP: 03/02/17 1125 Imaging Last Impressions Chest X-Ray 03/02/17 0000 Signed Impressions: Service Date/Time: Thursday, March 02, 2017 13:39 - CONCLUSION: 1. Right- sided pleural effusion and consolidation of the right middle lobe unchanged from prior of 02/27/17. Ilya Ricci MD CT Angiography 02/25/17 1257 Signed Impressions: Service Date/Time: Saturday, February 25, 2017 15:24 - CONCLUSION: 1. No evidence of PE. 2. Consolidated right middle and right lower lobes 3. Small to moderate right parapneumonic effusion Chano Lopez MD PE at Discharge General Appearance: Well Developed, Well Nourished, No Acute Distress, Comfortable, Obese Eyes Eye Exam: Pupils Equal Ears & Nose Ears & Nose Exam: Nasal Mucosa [place] Neck Neck Exam: Neck Supple, Trachea Midline Cardiology CV Exam: Regular, Bradycardia CV Remarks Sinus bradycardia Gastrointestinal/Abdomen GI Exam: Soft, Non-Tender, Bowel Sounds Present, Non-Distended Musculoskeletal MS Exam: Joints Intact Integumentary Skin Exam: Warm, Intact Extremeties Extremities Exam: No Edema, Pedal Pulses Palpable Neurologic Neuro Exam: Alert, Awake, Oriented, Speech Clear, Moving All Extremities, No Focal Deficits Psychiatric Psych Exam: Appropriate Responses Hospital Course These are the diagnoses that were used to treat this patient during this hospital stay (1) Pleural effusion (2) Pneumonia (3) Lactic acidosis (4) Blood glucose elevated (5) Elevated troponin (6) Atrial fibrillation and flutter (7) Hypoxemia 8. Dysrhythmias Vital signs reviewed, every 4 hours and as warranted, patient initially had fever which was controlled with antibiotics, telemetry showed dysrhythmias and atrial fibrillation and flutter. Cardiology was consult to assist with the management. Patient was stabilized on sotalol and stayed sinus bradycardia on the telemetry on his discharge day. Patient had urine and blood cultures drawn on admission which showed no growth Consolidated right middle and right lower lobe, small to moderate right parapneumonic effusion, initially managed on IV antibiotics and was able to be transitioned to by mouth Legionella and Pneumococcal Ag negative appreciate pulm input, right flank pain monitored throughout hospital stay and was thought to be muscle skeletal. Chest x-ray was monitored for any acute changes possible pain related to his pneumonia or pleural effusion. Responded and much improved with Flexeril, probable multiple muscle skeletal in nature Hypoxemia-resolved History of asthma as a child O2 duo nebs, walk test was performed today before discharge because patient was O2 dependent the first few days of admission. Test was negative, encourage patient not to use oxygen unless absolutely necessary. Afib/flutter with RVR noted on telemetry -appreciate card input. And plan a care, rate bradycardic in the mid to high 50s, patient is asymptomatic for any chest pain dizziness EKG to monitor QT interval QT interval . Discharge was delayed due to this dysrhythmia until patient was cleared per cardiology and thought to be medically stable Eliquis for DVT prophylaxis Patient was initially debilitated. Physical therapy worked with patient and assisted with ambulation throughout hospital stay. Ambulation and mobility from physical therapy helped him to go home without further needs strengthening and mobility. Consults included, pulmonary medicine, cardiology, hospitalist managing admission and discharge. We appreciate their input Pt Condition on Discharge: Stable Discharge Disposition: Discharge Home Discharge Instructions DIET: Follow Instructions for: Heart Healthy Diet Activities you can perform: Weight Bearing as Gilda Follow up Referrals: Cardiology - 1 Week with Cornelius Haynes MD PCP Follow-up May need a walker in the near future, he feels better using a walker however physical therapy evaluation does not suggest using a walker Pulmonology - 2 Weeks with Avery Arauz MD New Medications: Amoxicillin-Clavulanate (Amoxicillin-Clavulanate) 875-125 mg Tab 875 MG PO Q12HR Infection #14 Ref 0 TAB Apixaban (Eliquis) 5 Mg Tab 5 MG PO BID Stroke Prevention #60 Ref 1 TAB Cyclobenzaprine (Flexeril) 10 Mg Tab 10 MG PO HS Pain Management #30 Ref 0 TAB Furosemide (Furosemide) 20 Mg Tab 20 MG PO BID@09,18 FLUID OVERLOAD #20 Ref 0 TAB Potassium Chloride Microencaps (Potassium Chloride Microencaps) 20 Meq Tab 20 MEQ PO DAILY ELECTROLYTE REPLACEMENT #10 TAB Sotalol (Sorine) 80 Mg Tab 80 MG PO Q12HR ATRIAL FIBRILLATION #60 Ref 1 TAB Discontinued Medications: Ibuprofen (Ibuprofen) 200 Mg Cap 200 MG PO Q6H PRN PAIN SCALE 1 TO 10 Ref 0 CAP ([valerin]) 1 TAB PO DAILY Deysi Miranda Mar 05, 2017 17:55
[2017-03-10] MEDS ORDERED: APIX5TAB PO (11:23)
[2017-03-10] MEDS ORDERED: CYCL1TAB29 PO (11:23)
[2017-03-10] MEDS ORDERED: PNEU13P IM ×2 (11:23→12:38)
== END 2017-03-05 16:58 | disposition home or self-care (01) | DRG 194 ==
LOC: NEPE 12:43 → NEDA 17:12 → N05B 20:23
PROVIDERS: ADMIT Specialist; ATTEND Specialist
DX: J18.9 Pneumonia, unspecified organism (principal); J91.8 Pleural effusion in other conditions classified elsewhere; E87.2 Acidosis; D69.6 Thrombocytopenia, unspecified; I48.92 Unspecified atrial flutter; I48.91 Unspecified atrial fibrillation; G89.29 Other chronic pain; R09.02 Hypoxemia; Z77.090 Contact with and (suspected) exposure to asbestos; J45.909 Unspecified asthma, uncomplicated
CPT/HCPCS: 71010; 71020; 71275; 80048; 80053; 81001; 82550; 82552; 83036; 83605; 83690; 83735; 83880; 84100; 84443; 84484; 85025; 85610; 85730; 87040; 87449; 93005; 93306; 94620; 99285; J0456; J1650; J1940; J2543; J7030; J7050; Q9967